=== PATIENT | male | born 1965 | race Caucasian/White ===

== ENCOUNTER 2021-05-28 15:03 | Inpatient (IN) | payer MEDICARE, SELFPAY ==
[2021-05-28] VITALS (16 sets, daily range): BP systolic 125–135; BP diastolic 76–85; PULSE 88–105; RESP 15–35; TEMP 36.9; O2SAT 97–99
--- NOTE | 2021-05-28 | DI.RAD_ITS ---
Exam(s) XR PORTABLE CHEST AP EXAM: XR PORTABLE CHEST AP CLINICAL HISTORY: DKA, altered mental state, leukocytosis TECHNIQUE: 2D digital imaging was performed of the chest. One image was obtained. An AP view was ob tained. COMPARISON: No exams were available for comparison FINDINGS: MEDIASTINUM: Normal. HEART: Normal. PULMONARY VASCULATURE: Normal. LUNGS: Clear. PLEURAL SPACE: No pleural effusion or pneumothorax. BONE:Within normal limits for the patient's age. OTHER FINDINGS:There is a right IJ catheter in place. The tip is in good position at the junction of the superior vena cava and right atrium. There are surgical clips at the level of the left hemidiap hragm. IMPRESSION: No acute pulmonary findings. DATA REPOSITORY: RADIATION DOSE DELIVERED:
--- NOTE | 2021-05-28 15:00 | RT.EKG_ITS ---
APPROVED REPORT Exam: Resting ECG Reason for Exam: elevated troponin Patient Location: I HR:85 bpm ECG Measurements Heart Rate 85 AXIS NV 119 P 56 QRSd 85 QRS 72 QT 396 T 76 QTc 472 Conclusion Sinus rhythm...normal P axis, V-rate 60- 99 Normal Electrocardiogram
[2021-05-28] MEDS: Normal Saline Flush 10 ML SYR IVP (22:09)
[2021-05-28] MEDS: INSULIN REGULAR IN 0.9 % NACL 100 UNIT/100 ML BAG 6.5 UNIT IV (22:10)
[2021-05-28 22:27] LABS: BE (Venous) -12 mmol/L (-2-3); HCO3 (Venous) 14 mmol/L (23-28); O2 Sat (Venous) 85 %; TCO2 (Venous) 13 mmol/L (24-29); pCO2 (Venous) 27 mmHg (41-51); pH (Venous) 7.32 (7.31-7.41); pO2 (Venous) 46 mmHg
[2021-05-28 22:33] LABS: HGB 11.5 g/dL (13.5-17.5); MCH 27.6 pg (27.0-33.0); MCHC 32.9 % (32.0-36.0); MCV 83.9 fL (80-95); MPV 10.7 fL (8.0-11.0); Platelet Count 521 10^3/uL (130-400); RBC 4.17 10^6/uL (4.36-5.78); RDW 14.8 % (11.8-14.1); RDW-SD 45.1 fL; WBC 24.72 10^3/uL (4.4-10.8)
[2021-05-28 22:38] LABS: Source Nasal/Nares
[2021-05-28 22:44] LABS: Hemoglobin A1C 12.2 % (<5.7); INR 1.1 (0.9-1.1); Prothrombin Time 10.6 sec (9.3-11.0)
[2021-05-28 22:56] LABS: Absolute Neutrophil Count 18.54 10^3/uL (1.2-6.7); Bands % 1
[2021-05-28 22:57] LABS: Absolute Lymphocyte Count 2.97 10^3/uL (1.2-3.4); Absolute Monocyte Count 3.21 10^3/uL (0.1-0.8); Acanthocytes 1+; Atypical Lymphocytes % 1; Diff Comment Manual Differential; Howell-Jolly Bodies 1+; Nucleated RBC 1 %
[2021-05-28 22:58] LABS: Burr Cells (echinocyte) 3+
[2021-05-28 23:00] LABS: Procalcitonin 0.2 ng/mL
[2021-05-28 23:01] LABS: ALT 17 U/L (16-63); AST 15 U/L (15-37); Albumin 2.7 g/dL (3.4-5.0); Alkaline Phosphatase 165 U/L (46-116); Anion Gap 13.7 mmol/L (3-11); BUN 10 mg/dL (7-18); Bilirubin, Direct 0.1 mg/dL (0.0-0.2); Bilirubin, Total 0.5 mg/dL (0.2-1.0); C-Reactive Protein 2.43 mg/dL (0.0-0.3); CO2 15.3 mmol/L (21.0-32.0); Calcium 8.5 mg/dL (8.5-10.1); Chloride 107 mmol/L (98-107); Glucose 251 mg/dL (74-106); Magnesium 1.7 mg/dL (1.8-2.4); Potassium 3.4 mmol/L (3.5-5.1); Sodium 136 mmol/L (136-145); TSH (W/Ref FT4) 0.33 uIU/mL (0.36-3.74); Total Protein 6.1 g/dL (6.4-8.2)
[2021-05-28 23:04] LABS: Lipase 22 U/L (73-393); Troponin I 1.03 ng/mL (<0.06)
[2021-05-28 23:24] LABS: FREE T4 1.12 ng/dL (0.76-1.46)
[2021-05-28] MEDS: Lidocaine 2% Jelly 6 ML SYR (23:26)
[2021-05-28] MEDS: Heparin 5,000 UNITS/ML VIAL 5000 UNITS SC (23:32)
[2021-05-28 23:33] LABS: COVID-19 PCR Negative (Negative)
[2021-05-29] VITALS (132 sets, daily range): BP systolic 118–159; BP diastolic 72–121; PULSE 77–137; RESP 10–36; TEMP 36.5–37.8; O2SAT 94–99
[2021-05-29] MEDS: POTASSIUM CHLORIDE/0.9% NACL 1,000 ML 150 MEQ IV (00:13)
--- NOTE | 2021-05-29 01:16 | DI.VRAD_ITS ---
PROCEDURE INFORMATION: Exam: XR Chest Exam date and time: 05/28/2021 11:03 PM Age: 55 years old Clinical indication: Other: Dka, altered mental state, leukocytosis; Prior surgery; Surgery date: 1-6 months; Surgery type: Port TECHNIQUE: Imaging protocol: XR of the chest. Views: 1 view. COMPARISON: No relevant prior studies available. FINDINGS: Right Port a cath at the cavoatrial junction Lungs: Mild chronic interstitial prominence. No consolidation. Pleural spaces: No pleural effusion. No pneumothorax. Heart/Mediastinum: No cardiomegaly. Bones/joints: Unremarkable. Surgical clips in the left upper quadrant IMPRESSION: No acute findings. No radiographic evidence for pneumonia Dictated and Authenticated by: Radhames Saldivar MD. Ordering:CARIE Crump MD
[2021-05-29] MEDS: POTASSIUM CHLORIDE/D5-0.9%NACL 1,000 ML 150 MEQ IV ×5 (01:35→23:31)
[2021-05-29 02:19] LABS: Anion Gap 13.6 mmol/L (3-11); BUN 8 mg/dL (7-18); CO2 16.4 mmol/L (21.0-32.0); CREATININE 0.9 mg/dL (0.70-1.30); Calcium 8.7 mg/dL (8.5-10.1); Chloride 109 mmol/L (98-107); Sodium 139 mmol/L (136-145)
[2021-05-29 02:21] LABS: Ammonia 42 umol/L (11-32); Glucose 87 mg/dL (74-106)
[2021-05-29] MEDS: PIPERACILLIN/TAZO 3.375 GM in Normal Saline 50 ML IVPB (02:23)
[2021-05-29] MEDS: ACETAMINOPHEN 1,000 MG/100 ML BTL 400 MG IVPB ×2 (02:23→11:50)
[2021-05-29] MEDS: POTASSIUM CHLORIDE 20 MEQ/100 ML BAG 50 MEQ IVPB ×5 (03:11→16:03)
[2021-05-29] MEDS: INSULIN REGULAR IN 0.9 % NACL 100 UNIT/100 ML BAG 7 UNIT IV (03:22)
[2021-05-29 03:28] LABS: Total Protein (CSF) 34 mg/dL (15-45)
[2021-05-29 03:41] LABS: Tube # 4
[2021-05-29 03:42] LABS: Clarity Clear; RBC 1 /mm3 (0-5); WBC 11 /uL (0-5); Xanthochromia Absent
[2021-05-29 03:49] LABS: Glucose (CSF) 190 mg/dL (40-70)
[2021-05-29 04:55] LABS: Differential CSF: Performed
[2021-05-29] MEDS: Dextrose 50%-Water 25 GM/50 ML SYR (05:18)
--- NOTE | 2021-05-29 07:01 | W.PM.HP.N ---
Date of service: 05/28/21 Time of Service: 22:02 Assessment and Plan Assessment and plan (1) Lethargy: Status: Acute Assessment and plan: Etiology of lethargy is not quite clear at this time. If lethargy remains after blood sugar improves may need to consider further studies such as LP. CT scan of the head was negative. Ammonia level is ordered. (2) DKA (diabetic ketoacidosis): Status: Acute Assessment and plan: He is currently on intravenous insulin and normal saline. His hemodynamics are stable. His acidosis seems to be improving with the intravenous insulin and fluids compared to the labs from the previous hospital. (3) Abdominal pain: Status: Acute Assessment and plan: This is a chronic problem. CT scan from previous hospital showed inflammation of his transverse colon. He has been treated with piperacillin/tazobactam from present time they will be continued. He has a persistent leukocytosis that may be related to this colon inflammation. I do not see a urinalysis report at this time. (4) Acidosis due to secondary diabetes: Status: Acute (5) Elevated troponin: Status: Acute Assessment and plan: His troponin is elevated a bit more than it was at the prior hospital. I do not see any acute electrocardiographic abnormalities. This will be followed. I do not think she is suffering from a myocardial infarction at this time and suspect that the troponin leak is probably due to his other medical conditions. (6) Sepsis: Status: Acute Assessment and plan: He has been hemodynamically stable. His procalcitonin level is improved. Blood cultures have been repeated and I suspect that they were drawn at [facility]. He is being monitored in the intensive care unit. History of Present Illness History of Present Illness Chief Complaint: altered mental status, acidosis, hyperglycemia Narrative: This 55 year old male was transferred here from [facility] in [facility] because of altered mental status, hypoglycemia, diabetic ketoacidosis and leukocytosis. He went to the emergency department there on May 27 because of abdominal pain. He frequently goes to their infusion room at that hospital for intravenous fluids, antiemetics and pain medicine. He seemed to be a bit worse on that day because he showed up to the infusion room on twice. He was seen in emergency department had numerous lab studies and radiologic studies done. He was started on piperacillin/tazobactam for an elevated white blood cell count and thickening of his transverse colon on CT scan. He got worse while there is developed diabetic ketoacidosis. The emergency department there did not think he was a candidate to be admitted there they tried intermittent approximately 20 hospitals before the calling here and Dr. Martin accepted him for transfer. There was a delay moving him here because apparently there was no ambulance service available immediately. He showed up here approximately 10 PM on May 28. Prior to transfer he was started on insulin infusion and intravenous fluids. He was noted to have had a metabolic acidosis with pH of 7.1. He was febrile for the hospital intermittently. He was also tachycardic. He has persistent leukocytosis. He was stable during transport. On presentation here he was opening his eyes to commands but was minimally responsive. He cannot give me any history. I did review the records that were sent from [facility] although were not many details of his current illness. 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 Previous surgeries include heart catheterization, central venous catheter placement, multiple EGDs, incisional hernia repair, knee surgery, pancreatectomy and partial gastrectomy, islet cell transplantation history of cholecystectomy and past history of spinal cord stimulator. He is on disability because of chronic pancreatitis pain anxiety and rheumatoid arthritis. He lives with his . Allergies: Methotrexate clonidine cyclobenzaprine, ibuprofen, ondansetron, pregabalin, tizanidine, vancomycin, lorazepam and NSAIDs. Current medicines includes. Nitroglycerin, acetaminophen, albuterol inhaler, vitamin C, flunisolide nasal spray, stig, sennosides, vitamin D, pancreatic enzymes, lispro insulin, magnesium as needed, cefpoxidime, methocarbamol, omeprazole, citalopram, clonazepam, hydromorphone and metoclopramide. Review of Systems Unobtainable due to mental condition [facility] Medical History (Updated 05/29/21 @ 07:49 by Theron Ontiveros MD) Anxiety Asthma Depression DVT (deep venous thrombosis) GI bleed Pancreatitis Port-A-Cath in place Surgical History (Updated 05/29/21 @ 04:43 by Mavis Rosenthal) H/O splenectomy History of cardiac catheterization History of cholecystectomy History of esophagogastroduodenoscopy (EGD) History of hernia repair Social History Smoking/Tobacco Use Status: Former Tobacco Use Quit Date: 08/24/09 Smoking risk assessment performed?: Yes Details: PT CAN NOT ANSWER QUESTIONS AT THIS TIME Meds Allergies and Home Medications Allergies Allergy/AdvReac Type Severity Reaction Status Date / Time cyclobenzaprine AdvReac Mild EPIGASTRIC Unverified 05/29/21 05:02 PAIN clonidine AdvReac MUSCLE Unverified 05/29/21 05:02 CRAMPS ibuprofen AdvReac SEVERE Unverified 05/29/21 05:02 STOMACH PAIN lorazepam AdvReac NAUSEA AND Unverified 05/29/21 05:02 VOMITING methotrexate AdvReac CAUSED Unverified 05/29/21 05:02 PANCREATITIS NSAIDS (Non-Steroidal AdvReac UNKNOWN Unverified 05/29/21 05:02 Anti-Inflamma ondansetron [From Zofran] AdvReac EPIGASTRIC Unverified 05/29/21 05:02 PAIN pregabalin AdvReac DIZZINESS Unverified 05/29/21 05:02 DRY MOUTH BLURRY VISION tizanidine AdvReac EPIGASTRIC Unverified 05/29/21 05:02 PAIN CONSTIPATION AND DIZZINESS vancomycin AdvReac RED MAN Unverified 05/29/21 05:02 SYNDROME Exam Const General: ill appearing and lethargic Orientation: not oriented x3 HENMT Head: normal to inspection and normocephalic Eyes Sclera: sclerae normal Cornea: corneas normal Pupils: PERRL Neck Neck: normal visual inspection, no lymphadenopathy and no meningeal signs Resp Effort & Inspection: normal respiratory effort and no respiratory distress Auscultation: no rales, no rhonchi and no wheezes Cardio Jugular venous pressure: no JVD Rate: regular rate Rhythm: regular rhythm Heart Sounds: S1 normal, S2 normal, no gallops, no murmurs and no rubs GI Inspection: normal to inspection Palpation: soft, no hepatosplenomegaly and nontender Skin General skin exam: no rashes or lesions noted Neuro Comatose Patient: no decerebrate rigidity and no decorticate rigidity Other: he opens eyes on command but has no verbal response. He is not combative. He withdraws to pain. He pulled the condom catheter off after it was applied. He had some discomfort when they tried to place a Anne catheter and expand the balloon. Extrem General: normal to inspection and no edema Results Labs Result diagrams: 05/28/21 22:18 05/29/21 02:05 Labs: Laboratory Results - last 24 hr 05/28/21 05/28/21 05/28/21 15:01 22:18 22:18 WBC RBC Hgb Hct MCV MCH MCHC RDW Plt Count MPV Immature Gran % Neutrophils % Band Neutrophils % Lymphocytes % Atypical Lymphs % Monocytes % Eosinophils % Basophils % Nucleated RBC % Absolute Neutrophils Absolute Lymphocytes Absolute Monocytes Absolute Eosinophils Absolute Basophils RBC Morphology Xanthochromia [place] Bodies [place] Cells/Echinocytes Acanthocytes (Spur) PT INR VBG pH VBG pCO2 VBG pO2 VBG HCO3 VBG Total CO2 VBG O2 Saturation VBG Base Excess VBG Lactate Sodium Cancelled 136 Potassium Cancelled 3.4 L Chloride Cancelled 107 Carbon Dioxide Cancelled 15.3 L Anion Gap Cancelled 13.7 H BUN Cancelled 10 Creatinine Cancelled 1.0 Estimated GFR/1.73 m2 Cancelled >= 60.00 Glucose Cancelled 251 H Hemoglobin A1c 12.2 H Calcium Cancelled 8.5 Magnesium 1.7 L Total Bilirubin 0.5 Conjugated Bilirubin 0.1 AST 15 ALT 17 Alkaline Phosphatase 165 H Ammonia Troponin I 1.03 H* C-Reactive Protein 2.43 H Total Protein 6.1 L Albumin 2.7 L Lipase Procalcitonin TSH 0.33 L Free T4 1.12 Fluid Source Fluid Color Fluid Clarity Fluid WBC Fld Polynuclear WBCs % Fluid Mononuclear Cell Fluid Other Cells CSF Tube Number CSF Color CSF Clarity CSF WBC CSF RBC CSF Diff Comment CSF Glucose CSF Total Protein COVID-19 Source SARS-CoV-2 (PCR) Path Cons Comment 05/28/21 05/28/21 05/28/21 22:18 22:18 22:18 WBC 24.72 H RBC 4.17 L Hgb 11.5 L Hct 35.0 L MCV 83.9 MCH 27.6 MCHC 32.9 RDW 14.8 H Plt Count 521 H MPV 10.7 Immature Gran % See Differential Neutrophils % 74.0 Band Neutrophils % 1 Lymphocytes % 11.0 Atypical Lymphs % 1 Monocytes % 13.0 Eosinophils % 0.0 Basophils % 0.0 Nucleated RBC % 1 Absolute Neutrophils 18.54 H Absolute Lymphocytes 2.97 Absolute Monocytes 3.21 H Absolute Eosinophils 0.00 Absolute Basophils 0.00 RBC Morphology See Below Xanthochromia [place] Bodies 1+ [place] Cells/Echinocytes 3+ Acanthocytes (Spur) 1+ PT 10.6 INR 1.1 VBG pH VBG pCO2 VBG pO2 VBG HCO3 VBG Total CO2 VBG O2 Saturation VBG Base Excess VBG Lactate 1.0 Sodium Potassium Chloride Carbon Dioxide Anion Gap BUN Creatinine Estimated GFR/1.73 m2 Glucose Hemoglobin A1c Calcium Magnesium Total Bilirubin Conjugated Bilirubin AST ALT Alkaline Phosphatase Ammonia Troponin I C-Reactive Protein Total Protein Albumin Lipase Procalcitonin 0.2 TSH Free T4 Fluid Source Fluid Color Fluid Clarity Fluid WBC Fld Polynuclear WBCs % Fluid Mononuclear Cell Fluid Other Cells CSF Tube Number CSF Color CSF Clarity CSF WBC CSF RBC CSF Diff Comment CSF Glucose CSF Total Protein COVID-19 Source SARS-CoV-2 (PCR) Path Cons Comment 05/28/21 05/28/21 05/28/21 22:18 22:18 22:18 WBC RBC Hgb Hct MCV MCH MCHC RDW Plt Count MPV Immature Gran % Neutrophils % Band Neutrophils % Lymphocytes % Atypical Lymphs % Monocytes % Eosinophils % Basophils % Nucleated RBC % Absolute Neutrophils Absolute Lymphocytes Absolute Monocytes Absolute Eosinophils Absolute Basophils RBC Morphology Xanthochromia [place] Bodies [place] Cells/Echinocytes Acanthocytes ([place]) PT INR VBG pH 7.32 VBG pCO2 27 L VBG pO2 46 VBG HCO3 14 L VBG Total CO2 13 L VBG O2 Saturation 85 VBG Base Excess -12 L VBG Lactate Sodium Potassium Chloride Carbon Dioxide Anion Gap BUN Creatinine Estimated GFR/1.73 m2 Glucose Hemoglobin A1c Calcium Magnesium Total Bilirubin Conjugated Bilirubin AST ALT Alkaline Phosphatase Ammonia Troponin I C-Reactive Protein Total Protein Albumin Lipase 22 Procalcitonin TSH Free T4 Fluid Source Fluid Color Fluid Clarity Fluid WBC Fld Polynuclear WBCs % Fluid Mononuclear Cell Fluid Other Cells CSF Tube Number CSF Color CSF Clarity CSF WBC CSF RBC CSF Diff Comment CSF Glucose CSF Total Protein COVID-19 Source Nasal/Nares SARS-CoV-2 (PCR) Negative Path Cons Comment 05/29/21 05/29/21 05/29/21 02:05 02:05 02:45 WBC RBC Hgb Hct MCV MCH MCHC RDW Plt Count MPV Immature Gran % Neutrophils % Band Neutrophils % Lymphocytes % Atypical Lymphs % Monocytes % Eosinophils % Basophils % Nucleated RBC % Absolute Neutrophils Absolute Lymphocytes Absolute Monocytes Absolute Eosinophils Absolute Basophils RBC Morphology Xanthochromia [place] Bodies [place] Cells/Echinocytes Acanthocytes ([place]) PT INR VBG pH VBG pCO2 VBG pO2 VBG HCO3 VBG Total CO2 VBG O2 Saturation VBG Base Excess VBG Lactate Sodium 139 Potassium 3.0 L Chloride 109 H Carbon Dioxide 16.4 L Anion Gap 13.6 H BUN 8 Creatinine 0.9 Estimated GFR/1.73 m2 >= 60.00 Glucose 87 D Hemoglobin A1c Calcium 8.7 Magnesium Total Bilirubin Conjugated Bilirubin AST ALT Alkaline Phosphatase Ammonia 42 H Troponin I C-Reactive Protein Total Protein Albumin Lipase Procalcitonin TSH Free T4 Fluid Source Fluid Color Fluid Clarity Fluid WBC Fld Polynuclear WBCs % Fluid Mononuclear Cell Fluid Other Cells CSF Tube Number CSF Color CSF Clarity CSF WBC CSF RBC CSF Diff Comment CSF Glucose 190 H CSF Total Protein COVID-19 Source SARS-CoV-2 (PCR) Path Cons Comment 05/29/21 05/29/21 02:45 02:45 WBC RBC Hgb Hct MCV MCH MCHC RDW Plt Count MPV Immature Gran % Neutrophils % Band Neutrophils % Lymphocytes % Atypical Lymphs % Monocytes % Eosinophils % Basophils % Nucleated RBC % Absolute Neutrophils Absolute Lymphocytes Absolute Monocytes Absolute Eosinophils Absolute Basophils RBC Morphology Xanthochromia Absent [place] Bodies [place] Cells/Echinocytes Acanthocytes ([place]) PT INR VBG pH VBG pCO2 VBG pO2 VBG HCO3 VBG Total CO2 VBG O2 Saturation VBG Base Excess VBG Lactate Sodium Potassium Chloride Carbon Dioxide Anion Gap BUN Creatinine Estimated GFR/1.73 m2 Glucose Hemoglobin A1c Calcium Magnesium Total Bilirubin Conjugated Bilirubin AST ALT Alkaline Phosphatase Ammonia Troponin I C-Reactive Protein Total Protein Albumin Lipase Procalcitonin TSH Free T4 Fluid Source Cancelled Fluid Color Cancelled Fluid Clarity Cancelled Fluid WBC Cancelled Fld Polynuclear WBCs % Cancelled Fluid Mononuclear Cell Cancelled Fluid Other Cells Cancelled CSF Tube Number 4 CSF Color Colorless CSF Clarity Clear CSF WBC 11 H CSF RBC 1 CSF Diff Comment Performed CSF Glucose CSF Total Protein 34 COVID-19 Source SARS-CoV-2 (PCR) Path Cons Comment Cancelled Last Vital Signs Temp 37.8 C H 05/29/21 02:23 Pulse 87 05/29/21 04:00 Resp 25 H 05/29/21 04:01 BP 140/86 05/29/21 04:00 Pulse Ox 96 05/29/21 04:01
[2021-05-29] MEDS: Normal Saline 50 ML 200 ML (07:34)
[2021-05-29 07:40] LABS: BE (Venous) -6 mmol/L (-2-3); HCO3 (Venous) 19 mmol/L (23-28); O2 Sat (Venous) 82 %; TCO2 (Venous) 17 mmol/L (24-29); pCO2 (Venous) 30 mmHg (41-51); pH (Venous) 7.41 (7.31-7.41); pO2 (Venous) 39 mmHg
--- NOTE | 2021-05-29 07:45 | RT.EKG_ITS ---
APPROVED REPORT Exam: Resting ECG Reason for Exam: NSTEMI Patient Location: I HR:81 bpm ECG Measurements Heart Rate 81 AXIS TX 121 P 82 QRSd 83 QRS 64 QT 388 T 71 QTc 451 Conclusion Sinus rhythm...normal P axis, V-rate 60- 99 Normal Electrocardiogram
[2021-05-29 07:53] LABS: Abs Immature Grans 0.22 10^3/uL (0.0-0.06); Absolute Basophil Count 0.03 10^3/uL (0.0-0.2); Absolute Lymphocyte Count 1.85 10^3/uL (1.2-3.4); Absolute Monocyte Count 1.85 10^3/uL (0.1-0.8); Basophils % 0.1; HCT 34.4 % (40.0-50.0); HGB 11.6 g/dL (13.5-17.5); Immature Grans % 0.9; Lymphocytes % 7.3; MCH 27.3 pg (27.0-33.0); MCHC 33.7 % (32.0-36.0); MCV 80.9 fL (80-95); MPV 10.7 fL (8.0-11.0); Monocytes % 7.3; Neutrophils % 84.4; Nucleated RBC 0 %; Platelet Count 521 10^3/uL (130-400); RBC 4.25 10^6/uL (4.36-5.78); RDW 14.7 % (11.8-14.1); RDW-SD 43.2 fL
--- NOTE | 2021-05-29 07:54 | PGE_ITS ---
Date of Service Date of service: 05/29/21 Time of Service: 01:54 Subjective Subjective Interval history since last seen: He has had persistent lethargy since admission. His blood sugars have improved and he has a leukocytosis of uncert ain definite etiology. I discussed situation with his and supposedly do a lumbar puncture to evaluate him for a HADOOP DEVELOPER infection. She agrees and is verbal permission to proceed with lumbar puncture. She gave her permission also to the nurse in attendance. I reviewed the CT report of his head prior to doing the lumbar puncture to make sure there is no hydrocephalus. He was positioned in the right lateral knee-chest position with nursing assistance. The landmarks of his iliac crest and spinous processes were palpated and marked with a pen. Prep was done with chlorhexidine and using ster ile procedure the interspace at the level of the iliac crest was anesthetized with lidocaine 1%. After 1 attempt at that level and 09/02 1 interspace higher I went back to the first lumbar interspace with a 22-gauge spinal needle and was able to get spinal fluid. First pass of the fluid was a bit bloody but then cleared. Four test tubes of spinal fluid were sent to the lab for analysis. Patient tolerated procedure well. The spinal needle was removed after replacing the stylette to help reduce the chance of post LP fluid leak. A bandage was applied. Objective Last Vital Signs Temp 37.8 C H 05/29/21 02:23 Pulse 78 05/29/21 07:00 Resp 18 05/29/21 07:20 BP 122/76 05/29/21 07:00 Pulse Ox 99 05/29/21 07:31 Laboratory Results - last 24 hr 05/28/21 05/28/21 05/28/21 15:01 22:18 22:18 WBC RBC Hgb Hct MCV MCH MCHC RDW Plt Count MPV Immature Gran % Neutrophils % Band Neutrophils % Lymphocytes % Atypical Lymphs % Monocytes % Eosinophils % Basophils % Nucleated RBC % Absolute Neutrophils Absolute Lymphocytes Absolute Monocytes Absolute Eosinophils Absolute Basophils RBC Morphology Xanthochromia [place] Bodies [place] Cells/Echinocytes Acanthocytes ([place]) PT INR VBG pH VBG pCO2 VBG pO2 VBG HCO3 VBG Total CO2 VBG O2 Saturation VBG Base Excess VBG Lactate Sodium Cancelled 136 Potassium Cancelled 3.4 L Chloride Cancelled 107 Carbon Dioxide Cancelled 15.3 L Anion Gap Cancelled 13.7 H BUN Cancelled 10 Creatinine Cancelled 1.0 Estimated GFR/1.73 m2 Cancelled >= 60.00 Glucose Cancelled 251 H Hemoglobin A1c 12.2 H Calcium Cancelled 8.5 Magnesium 1.7 L Total Bilirubin 0.5 Conjugated Bilirubin 0.1 AST 15 ALT 17 Alkaline Phosphatase 165 H Ammonia Troponin I 1.03 H* C-Reactive Protein 2.43 H Total Protein 6.1 L Albumin 2.7 L Lipase Procalcitonin TSH 0.33 L Free T4 1.12 Fluid Source Fluid Color Fluid Clarity Fluid WBC Fld Polynuclear WBCs % Fluid Mononuclear Cell Fluid Other Cells CSF Tube Number CSF Color CSF Clarity CSF WBC CSF RBC CSF Diff Comment CSF Glucose CSF Total Protein COVID-19 Source SARS-CoV-2 (PCR) Path Cons Comment 05/28/21 05/28/21 05/28/21 22:18 22:18 22:18 WBC 24.72 H RBC 4.17 L Hgb 11.5 L Hct 35.0 L MCV 83.9 MCH 27.6 MCHC 32.9 RDW 14.8 H Plt Count 521 H MPV 10.7 Immature Gran % See Differential Neutrophils % 74.0 Band Neutrophils % 1 Lymphocytes % 11.0 Atypical Lymphs % 1 Monocytes % 13.0 Eosinophils % 0.0 Basophils % 0.0 Nucleated RBC % 1 Absolute Neutrophils 18.54 H Absolute Lymphocytes 2.97 Absolute Monocytes 3.21 H Absolute Eosinophils 0.00 Absolute Basophils 0.00 RBC Morphology See Below Xanthochromia [place] Bodies 1+ [place] Cells/Echinocytes 3+ Acanthocytes (Spur) 1+ PT 10.6 INR 1.1 VBG pH VBG pCO2 VBG pO2 VBG HCO3 VBG Total CO2 VBG O2 Saturation VBG Base Excess VBG Lactate 1.0 Sodium Potassium Chloride Carbon Dioxide Anion Gap BUN Creatinine Estimated GFR/1.73 m2 Glucose Hemoglobin A1c Calcium Magnesium Total Bilirubin Conjugated Bilirubin AST ALT Alkaline Phosphatase Ammonia Troponin I C-Reactive Protein Total Protein Albumin Lipase Procalcitonin 0.2 TSH Free T4 Fluid Source Fluid Color Fluid Clarity Fluid WBC Fld Polynuclear WBCs % Fluid Mononuclear Cell Fluid Other Cells CSF Tube Number CSF Color CSF Clarity CSF WBC CSF RBC CSF Diff Comment CSF Glucose CSF Total Protein COVID-19 Source SARS-CoV-2 (PCR) Path Cons Comment 05/28/21 05/28/21 05/28/21 22:18 22:18 22:18 WBC RBC Hgb Hct MCV MCH MCHC RDW Plt Count MPV Immature Gran % Neutrophils % Band Neutrophils % Lymphocytes % Atypical Lymphs % Monocytes % Eosinophils % Basophils % Nucleated RBC % Absolute Neutrophils Absolute Lymphocytes Absolute Monocytes Absolute Eosinophils Absolute Basophils RBC Morphology Xanthochromia [place] Bodies [place] Cells/Echinocytes Acanthocytes ([place]) PT INR VBG pH 7.32 VBG pCO2 27 L VBG pO2 46 VBG HCO3 14 L VBG Total CO2 13 L VBG O2 Saturation 85 VBG Base Excess -12 L VBG Lactate Sodium Potassium Chloride Carbon Dioxide Anion Gap BUN Creatinine Estimated GFR/1.73 m2 Glucose Hemoglobin A1c Calcium Magnesium Total Bilirubin Conjugated Bilirubin AST ALT Alkaline Phosphatase Ammonia Troponin I C-Reactive Protein Total Protein Albumin Lipase 22 Procalcitonin TSH Free T4 Fluid Source Fluid Color Fluid Clarity Fluid WBC Fld Polynuclear WBCs % Fluid Mononuclear Cell Fluid Other Cells CSF Tube Number CSF Color CSF Clarity CSF WBC CSF RBC CSF Diff Comment CSF Glucose CSF Total Protein COVID-19 Source Nasal/Nares SARS-CoV-2 (PCR) Negative Path Cons Comment 05/29/21 05/29/21 05/29/21 02:05 02:05 02:45 WBC RBC Hgb Hct MCV MCH MCHC RDW Plt Count MPV Immature Gran % Neutrophils % Band Neutrophils % Lymphocytes % Atypical Lymphs % Monocytes % Eosinophils % Basophils % Nucleated RBC % Absolute Neutrophils Absolute Lymphocytes Absolute Monocytes Absolute Eosinophils Absolute Basophils RBC Morphology Xanthochromia [place] Bodies [place] Cells/Echinocytes Acanthocytes ([place]) PT INR VBG pH VBG pCO2 VBG pO2 VBG HCO3 VBG Total CO2 VBG O2 Saturation VBG Base Excess VBG Lactate Sodium 139 Potassium 3.0 L Chloride 109 H Carbon Dioxide 16.4 L Anion Gap 13.6 H BUN 8 Creatinine 0.9 Estimated GFR/1.73 m2 >= 60.00 Glucose 87 D Hemoglobin A1c Calcium 8.7 Magnesium Total Bilirubin Conjugated Bilirubin AST ALT Alkaline Phosphatase Ammonia 42 H Troponin I C-Reactive Protein Total Protein Albumin Lipase Procalcitonin TSH Free T4 Fluid Source Fluid Color Fluid Clarity Fluid WBC Fld Polynuclear WBCs % Fluid Mononuclear Cell Fluid Other Cells CSF Tube Number CSF Color CSF Clarity CSF WBC CSF RBC CSF Diff Comment CSF Glucose 190 H CSF Total Protein COVID-19 Source SARS-CoV-2 (PCR) Path Cons Comment 05/29/21 05/29/21 05/29/21 02:45 02:45 07:28 WBC RBC Hgb Hct MCV MCH MCHC RDW Plt Count MPV Immature Gran % Neutrophils % Band Neutrophils % Lymphocytes % Atypical Lymphs % Monocytes % Eosinophils % Basophils % Nucleated RBC % Absolute Neutrophils Absolute Lymphocytes Absolute Monocytes Absolute Eosinophils Absolute Basophils RBC Morphology Xanthochromia Absent [place] Bodies [place] Cells/Echinocytes Acanthocytes ([place]) PT INR VBG pH 7.41 VBG pCO2 30 L VBG pO2 39 VBG HCO3 19 L VBG Total CO2 17 L VBG O2 Saturation 82 VBG Base Excess -6 L VBG Lactate Sodium Potassium Chloride Carbon Dioxide Anion Gap BUN Creatinine Estimated GFR/1.73 m2 Glucose Hemoglobin A1c Calcium Magnesium Total Bilirubin Conjugated Bilirubin AST ALT Alkaline Phosphatase Ammonia Troponin I C-Reactive Protein Total Protein Albumin Lipase Procalcitonin TSH Free T4 Fluid Source Cancelled Fluid Color Cancelled Fluid Clarity Cancelled Fluid WBC Cancelled Fld Polynuclear WBCs % Cancelled Fluid Mononuclear Cell Cancelled Fluid Other Cells Cancelled CSF Tube Number 4 CSF Color Colorless CSF Clarity Clear CSF WBC 11 H CSF RBC 1 CSF Diff Comment Performed CSF Glucose CSF Total Protein 34 COVID-19 Source SARS-CoV-2 (PCR) Path Cons Comment Cancelled Procedures Lumbar Puncture Time out performed: Yes Patient position: right lateral decubitus Local anesthetic used: Lidocaine 1% Spinal needle gauge: 22G Interspace used: L4-L5 Fluid initially obtained: bloody Complications: none
[2021-05-29 07:55] LABS: Lipase 20 U/L (73-393)
[2021-05-29 07:56] LABS: Absolute Neutrophil Count 21.44 10^3/uL (1.2-6.7)
--- NOTE | 2021-05-29 07:57 | NUR.NOTE ---
Spoke with Dr. Ontiveros around 0515. Advised that following the [place] scale will likely not work for this pt. He has an A1C of 12 and gets sick when his BGL drops out of the 100s. He begins vomiting and visibly looks more distressed. Weston agrees that a trial titration might work best for patient to find the best spot of units of insulin. As noted in his MAR a monitor titration was done and patient seemed to respond better then following the protocol. Will pass this on for day shift to decide what works best for patient.
[2021-05-29 08:06] LABS: Total Protein 6.1 g/dL (6.4-8.2)
[2021-05-29 08:10] LABS: Anion Gap 9.4 mmol/L (3-11); BUN 6 mg/dL (7-18); CO2 21.6 mmol/L (21.0-32.0); CREATININE 0.9 mg/dL (0.70-1.30); Calcium 8.4 mg/dL (8.5-10.1); Chloride 108 mmol/L (98-107); Glucose 159 mg/dL (74-106); Magnesium 1.7 mg/dL (1.8-2.4); Sodium 139 mmol/L (136-145)
--- NOTE | 2021-05-29 08:10 | W.PM.PROGNOT ---
Date of Service Date of service: 05/29/21 Time of Service: 13:07 Assessment and Plan Assessment and plan (1) Gram negative sepsis: Status: Acute Assessment and plan: Per records from [facility], the patient has colitis and had been initiated on zosyn. C.Diff negaitve. Continue zosyn. Repeat blood cultures tomorrow am. Port has been cultured. Continue IVF. Expect that the source is intraabdominal. Consider extraction of the port. (2) DKA (diabetic ketoacidosis): Status: Resolved Assessment and plan: Resolved. Continue insulin gtt as still not eating. Did receive his home dose of lantus today. Qualifiers: Diabetes mellitus type: due to underlying condition Diabetes mellitus complication detail: without coma Qualified Code(s): E08.10 - Diabetes mellitus due to underlying condition with ketoacidosis without coma (3) Elevated troponin: Status: Acute Assessment and plan: Suspect type 2 NSTEMI. Would benefit from cardiology consult tomorrow. I am not sure what ischemic workup he has already had - will investigate. Asa rectal. Obtain echo. (4) Toxic metabolic encephalopathy: Status: Acute Assessment and plan: Suspect that this is due to GNR sepsis +/- DKA. Does also have elevated ammonia. Consider lactulose vs rifaxamine when taking PO. Monitor mental status (5) Hyperammonemia: Status: Acute Assessment and plan: As above (6) Hypomagnesemia: Status: Acute Assessment and plan: Replete and recheck in am (7) Hypophosphatemia: Status: Acute Assessment and plan: Replete and recheck in am (8) History of pancreatic islet cell transplantation: Status: Chronic Assessment and plan: For chronic pancreatitis due to above. With secondary T1DM. He is not on immunosupressants. 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 (10) Hypokalemia: Status: Acute Assessment and plan: Replete, recheck in am (11) Secondary diabetes mellitus: Status: Chronic Assessment and plan: Insulin dependent as s/p pancreatectomy, acts as T1DM. GOt home lantus. Keep on insulin gtt while not eating. Keep in ICU (12) Cystic fibrosis: Status: Chronic Assessment and plan: Referral placed for [facility]. (13) DVT prophylaxis: Status: Acute Assessment and plan: SC heparin (14) Discharge planning issues: Status: Acute Assessment and plan: Full code. Keep in ICU. Total Critical Care Time [address] Alvarez. Subjective Subjective Interval history since last seen: On D5NS with 40 meq KCl. Insulin gtt still on as he still has not eaten, but DKA has resolved. He has been very lethargic, arousable, but not answering all questions. He cannot answer where he is. Denies chest pain, shortness of breath, abdominal pain, but moans/grimaces when I press on the abdomen. Does report nausea. Trop 0.68, K 2.9. Has an infusaport. GNR in anaerobic blood culture bottle. Exam Narrative Exam Narrative: General: Middle-aged Caucasina male who is clearly encephalopathic, A&ox1, lethargic HEENT: EOMI, MMM Heart: RRR, no m/r/g Lungs: CTAB Abdomen: soft, +hypoactive bowel sounds, diffusely tender. Extremities: no edema BLE's. +1 BLE pedal pulses Objective Last Vital Signs Temp 37.5 C 05/29/21 04:30 Pulse 78 05/29/21 07:00 Resp 18 05/29/21 07:20 BP 122/76 05/29/21 07:00 Pulse Ox 99 05/29/21 07:31 Laboratory Results - last 24 hr 05/28/21 05/28/21 05/28/21 15:01 22:18 22:18 WBC RBC Hgb Hct MCV MCH MCHC RDW Plt Count MPV Immature Gran % Neutrophils % Band Neutrophils % Lymphocytes % Atypical Lymphs % Monocytes % Eosinophils % Basophils % Nucleated RBC % Absolute Neutrophils Absolute Lymphocytes Absolute Monocytes Absolute Eosinophils Absolute Basophils RBC Morphology Xanthochromia [place] B[place] Cells/Echinocytes Acanthocytes (Spur) PT INR VBG pH VBG pCO2 VBG pO2 VBG HCO3 VBG Total CO2 VBG O2 Saturation VBG Base Excess VBG Lactate Sodium Cancelled 136 Potassium Cancelled 3.4 L Chloride Cancelled 107 Carbon Dioxide Cancelled 15.3 L Anion Gap Cancelled 13.7 H BUN Cancelled 10 Creatinine Cancelled 1.0 Estimated GFR/1.73 m2 Cancelled >= 60.00 Glucose Cancelled 251 H Hemoglobin A1c 12.2 H Calcium Cancelled 8.5 Magnesium 1.7 L Total Bilirubin 0.5 Conjugated Bilirubin 0.1 AST 15 ALT 17 Alkaline Phosphatase 165 H Ammonia Troponin I 1.03 H* C-Reactive Protein 2.43 H Total Protein 6.1 L Albumin 2.7 L Lipase Procalcitonin TSH 0.33 L Free T4 1.12 Fluid Source Fluid Color Fluid Clarity Fluid WBC Fld Polynuclear WBCs % Fluid Mononuclear Cell Fluid Other Cells CSF Tube Number CSF Color CSF Clarity CSF WBC CSF RBC CSF Diff Comment CSF Glucose CSF Total Protein COVID-19 Source SARS-CoV-2 (PCR) Path Cons Comment 05/28/21 05/28/21 05/28/21 22:18 22:18 22:18 WBC 24.72 H RBC 4.17 L Hgb 11.5 L Hct 35.0 L MCV 83.9 MCH 27.6 MCHC 32.9 RDW 14.8 H Plt Count 521 H MPV 10.7 Immature Gran % See Differential Neutrophils % 74.0 Band Neutrophils % 1 Lymphocytes % 11.0 Atypical Lymphs % 1 Monocytes % 13.0 Eosinophils % 0.0 Basophils % 0.0 Nucleated RBC % 1 Absolute Neutrophils 18.54 H Absolute Lymphocytes 2.97 Absolute Monocytes 3.21 H Absolute Eosinophils 0.00 Absolute Basophils 0.00 RBC Morphology See Below Xanthochromia [place] Bodies 1+ [place] Cells/Echinocytes 3+ Acanthocytes (Spur) 1+ PT 10.6 INR 1.1 VBG pH VBG pCO2 VBG pO2 VBG HCO3 VBG Total CO2 VBG O2 Saturation VBG Base Excess VBG Lactate 1.0 Sodium Potassium Chloride Carbon Dioxide Anion Gap BUN Creatinine Estimated GFR/1.73 m2 Glucose Hemoglobin A1c Calcium Magnesium Total Bilirubin Conjugated Bilirubin AST ALT Alkaline Phosphatase Ammonia Troponin I C-Reactive Protein Total Protein Albumin Lipase Procalcitonin 0.2 TSH Free T4 Fluid Source Fluid Color Fluid Clarity Fluid WBC Fld Polynuclear WBCs % Fluid Mononuclear Cell Fluid Other Cells CSF Tube Number CSF Color CSF Clarity CSF WBC CSF RBC CSF Diff Comment CSF Glucose CSF Total Protein COVID-19 Source SARS-CoV-2 (PCR) Path Cons Comment 05/28/21 05/28/21 05/28/21 22:18 22:18 22:18 WBC RBC Hgb Hct MCV MCH MCHC RDW Plt Count MPV Immature Gran % Neutrophils % Band Neutrophils % Lymphocytes % Atypical Lymphs % Monocytes % Eosinophils % Basophils % Nucleated RBC % Absolute Neutrophils Absolute Lymphocytes Absolute Monocytes Absolute Eosinophils Absolute Basophils RBC Morphology Xanthochromia [place] Bodies [place] Cells/Echinocytes Acanthocytes (Spur) PT INR VBG pH 7.32 VBG pCO2 27 L VBG pO2 46 VBG HCO3 14 L VBG Total CO2 13 L VBG O2 Saturation 85 VBG Base Excess -12 L VBG Lactate Sodium Potassium Chloride Carbon Dioxide Anion Gap BUN Creatinine Estimated GFR/1.73 m2 Glucose Hemoglobin A1c Calcium Magnesium Total Bilirubin Conjugated Bilirubin AST ALT Alkaline Phosphatase Ammonia Troponin I C-Reactive Protein Total Protein Albumin Lipase 22 Procalcitonin TSH Free T4 Fluid Source Fluid Color Fluid Clarity Fluid WBC Fld Polynuclear WBCs % Fluid Mononuclear Cell Fluid Other Cells CSF Tube Number CSF Color CSF Clarity CSF WBC CSF RBC CSF Diff Comment CSF Glucose CSF Total Protein COVID-19 Source Nasal/Nares SARS-CoV-2 (PCR) Negative Path Cons Comment 05/29/21 05/29/21 05/29/21 02:05 02:05 02:45 WBC RBC Hgb Hct MCV MCH MCHC RDW Plt Count MPV Immature Gran % Neutrophils % Band Neutrophils % Lymphocytes % Atypical Lymphs % Monocytes % Eosinophils % Basophils % Nucleated RBC % Absolute Neutrophils Absolute Lymphocytes Absolute Monocytes Absolute Eosinophils Absolute Basophils RBC Morphology Xanthochromia [place] Bodies [place] Cells/Echinocytes Acanthocytes (Spur) PT INR VBG pH VBG pCO2 VBG pO2 VBG HCO3 VBG Total CO2 VBG O2 Saturation VBG Base Excess VBG Lactate Sodium 139 Potassium 3.0 L Chloride 109 H Carbon Dioxide 16.4 L Anion Gap 13.6 H BUN 8 Creatinine 0.9 Estimated GFR/1.73 m2 >= 60.00 Glucose 87 D Hemoglobin A1c Calcium 8.7 Magnesium Total Bilirubin Conjugated Bilirubin AST ALT Alkaline Phosphatase Ammonia 42 H Troponin I C-Reactive Protein Total Protein Albumin Lipase Procalcitonin TSH Free T4 Fluid Source Fluid Color Fluid Clarity Fluid WBC Fld Polynuclear WBCs % Fluid Mononuclear Cell Fluid Other Cells CSF Tube Number CSF Color CSF Clarity CSF WBC CSF RBC CSF Diff Comment CSF Glucose 190 H CSF Total Protein COVID-19 Source SARS-CoV-2 (PCR) Path Cons Comment 05/29/21 05/29/21 05/29/21 02:45 02:45 07:28 WBC RBC Hgb Hct MCV MCH MCHC RDW Plt Count MPV Immature Gran % Neutrophils % Band Neutrophils % Lymphocytes % Atypical Lymphs % Monocytes % Eosinophils % Basophils % Nucleated RBC % Absolute Neutrophils Absolute Lymphocytes Absolute Monocytes Absolute Eosinophils Absolute Basophils RBC Morphology Xanthochromia Absent [place] Bodies [place] Cells/Echinocytes Acanthocytes (Spur) PT INR VBG pH 7.41 VBG pCO2 30 L VBG pO2 39 VBG HCO3 19 L VBG Total CO2 17 L VBG O2 Saturation 82 VBG Base Excess -6 L VBG Lactate Sodium Potassium Chloride Carbon Dioxide Anion Gap BUN Creatinine Estimated GFR/1.73 m2 Glucose Hemoglobin A1c Calcium Magnesium Total Bilirubin Conjugated Bilirubin AST ALT Alkaline Phosphatase Ammonia Troponin I C-Reactive Protein Total Protein Albumin Lipase Procalcitonin TSH Free T4 Fluid Source Cancelled Fluid Color Cancelled Fluid Clarity Cancelled Fluid WBC Cancelled Fld Polynuclear WBCs % Cancelled Fluid Mononuclear Cell Cancelled Fluid Other Cells Cancelled CSF Tube Number 4 CSF Color Colorless CSF Clarity Clear CSF WBC 11 H CSF RBC 1 CSF Diff Comment Performed CSF Glucose CSF Total Protein 34 COVID-19 Source SARS-CoV-2 (PCR) Path Cons Comment Cancelled 05/29/21 05/29/21 07:28 07:28 WBC RBC Hgb Hct MCV MCH MCHC RDW Plt Count MPV Immature Gran % Neutrophils % Band Neutrophils % Lymphocytes % Atypical Lymphs % Monocytes % Eosinophils % Basophils % Nucleated RBC % Absolute Neutrophils Absolute Lymphocytes Absolute Monocytes Absolute Eosinophils Absolute Basophils RBC Morphology Xanthochromia [place] Bodies [place] Cells/Echinocytes Acanthocytes (Spur) PT INR VBG pH VBG pCO2 VBG pO2 VBG HCO3 VBG Total CO2 VBG O2 Saturation VBG Base Excess VBG Lactate Sodium Potassium Chloride Carbon Dioxide Anion Gap BUN Creatinine Estimated GFR/1.73 m2 Glucose Hemoglobin A1c Calcium Magnesium Total Bilirubin Conjugated Bilirubin AST ALT Alkaline Phosphatase Ammonia Troponin I C-Reactive Protein Total Protein 6.1 L Albumin Lipase 20 Procalcitonin TSH Free T4 Fluid Source Fluid Color Fluid Clarity Fluid WBC Fld Polynuclear WBCs % Fluid Mononuclear Cell Fluid Other Cells CSF Tube Number CSF Color CSF Clarity CSF WBC CSF RBC CSF Diff Comment CSF Glucose CSF Total Protein COVID-19 Source SARS-CoV-2 (PCR) Path Cons Comment
[2021-05-29 08:12] LABS: Troponin I 0.68 ng/mL (<0.06)
[2021-05-29 08:13] LABS: Potassium 2.9 mmol/L (3.5-5.1)
[2021-05-29 08:15] LABS: Burr Cells (echinocyte) 3+; Diff Comment Agrees w/ Instrument
--- NOTE | 2021-05-29 08:40 | INITIAL_ITS ---
- If Service Date Differs Date of service: 05/29/21 Time of Service: 08:40 Care Management Initial Assess REASON FOR HOSPITALIZATION:: Lethargy, DKA, Abdominal Pain, Acidosis, Elevated Troponin, Sepsis PAST MEDICAL HISTORY/PAST SURGICAL HISTORY:: Medical History (Updated 05/29/21 @ 07:49 by Theron Ontiveros MD). Anxiety. Asthma. Depression. DVT (deep venous thrombosis). GI bleed. Pancreatitis. Port-A-Cath in place. Surgical History (Updated 05/29/21 @ 04:43 by Mavis Rosenthal). H/O splenectomy. History of cardiac catheterization. History of cholecystectomy. History of esophagogastroduodenoscopy (EGD). History of hernia repair PREVIOUS FUNCTIONAL STATUS/SOCIAL/FAMILY SUPPORTS:: Anderson lives in [place] with his . He has 1 adult child that lives at him and 3 others who live in the area. They are all supportive. Anderson is independent at baseline. He is disabled and on SSDI. His provides his transportation, as he does not drive. CURRENT FUNCTIONAL STATUS:: Anderson was lying in bed and his Windy was at his bedside when CM met with him. CM interviewed Windy since Anderson was not answering questions, although he was awake. Windy shared a bit about Anderson's health and his history of chronic pancreatitis and GI surgeries. Traditionally Anderson receives his healthcare at [facility] and has been to [facility] for his chronic conditions and surgery. ADVANCE DIRECTIVES:: Not on file at [facility]. Has patient been provided with info about the portal/API?: Yes Did the patient sign up for the portal?: No CODE STATUS:: Full Code INSURANCE COVERAGE / FINANCIAL ISSUES:: Medicare per . She agrees to bring his card the next time she visits. CURRENT HOME/COMMUNITY SERVICES/EQUIPMENT:: None at this time PRIMARY CARE PHYSICIAN:: Jennie Varela, [facility] in [place] PATIENT/FAMILY EDUCATION NEEDS:: Review discharge instructions and plan to follow up with community providers, ask me three. TRANSPORTATION:: Via private vehicle with . PLAN:: Anticipate Anderson will be discharge home via private vehicle with when medically cleared by MD. Will follow up with community providers and discharge plan of care.
[2021-05-29] MEDS: Insulin Glargine 300 UNITS/3 ML PEN 22 UNITS SC (09:42)
[2021-05-29] MEDS: Heparin 5,000 UNITS/ML VIAL 5000 UNITS SC ×3 (09:42→23:44)
[2021-05-29] MEDS: Pantoprazole 40 MG VIAL IVP (09:42)
[2021-05-29] MEDS: metroNIDAZOLE 500 MG/100 ML BAG 100 MG IVPB (09:42)
[2021-05-29 09:52] LABS: C Diff PCR Negative (Negative)
--- NOTE | 2021-05-29 10:46 | W.PULMCC ---
General Date of Service Date of service: 05/29/21 Time of Service: 07:00 Reason for Admission to ICU: DKA Assessment and Plan Assessment and plan (1) DKA (diabetic ketoacidosis): Status: Acute Qualifiers: Diabetes mellitus complication detail: without coma Diabetes mellitus type: due to underlying condition Qualified Code(s): E08.10 - Diabetes mellitus due to underlying condition with ketoacidosis without coma (2) Chronic inflammation of pancreas: Status: Acute Qualifiers: Pancreatitis type: other Qualified Code(s): K86.1 - Other chronic pancreatitis (3) History of pancreatic islet cell transplantation: Status: Acute (4) Cystic fibrosis: Status: Acute (5) Hypokalemia: Status: Acute (6) Hypomagnesemia: Status: Acute (7) Hypophosphatemia: Status: Acute (8) Elevated troponin: Status: Acute (9) Hyperammonemia: Status: Acute (10) Leukocytosis: Status: Acute Qualifiers: Leukocytosis type: unspecified Qualified Code(s): D72.829 - Elevated white blood cell count, unspecified (11) 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 As of this morning is her control and he has been converted to D5 half-normal and remains on the insulin drip. He is not he nauseated and unwilling to try food at this time. He had not received his Lantus as of yet so this was placed this morning. His CT scan was positive for inflammation surrounding his colon. His procalcitonin is negative but he does have significant leukocytosis and abdominal pain and this morning had a large mucousy bowel movement that will be tested for C. difficile. Surrounding his cystic fibrosis diagnosis there is mention of it in an old gastroenterology note from [facility] however it does not seem as though he has been plugged in to the CF program there or has seen a botany professor before. Based on his CAT scan of his abdomen and pelvis the lower cuts of his lungs did not show any significant bronchiectasis. He chronically appears as though he is malnourished and does take pancreatic enzymes with his food. He tells me he thinks he was taking his Lantus appropriately prior to admission but he is not clear on what day he last took his insulin. Recommendations Pulmonary: Cystic Fibrosis - unclear history on this, no evidence of bronchiectasis in lower lung cuts of A/P CT - recommend referral to [facility] program - albuterol HFA q4hrs prn Cardiac: Elevated troponin - have trended down - likely demand in the setting of DKA Renal: Hypokalemia - replete to 4.0 Hypophosphatemia - replete to 4.0 Hypomagnesemia - replete to 2.0 I&O: Intake & Output 05/26/21 05/27/21 05/28/21 05/29/21 23:59 23:59 23:59 23:59 Intake Total 10.392 / 392 1857.751 / 1857.751 Output Total 1884 / 1884 Balance 10.392 / . -26.249 / -26.249 Weight 69.3 kg 64.4 kg Daily Fluid Goal:: Even to positive GI Nutrition: Pancreatic Insufficiency - likely due to pancreatic insufficiency - continue home pancreatic enzymes - Creon 24,000-76,000-120,000 4 caps tid with food - Creon 12,000- 38,000- 60, 000, 1 tab with non clear liquids - continue vitamin D2 50,000 1 cap q3 days - sucralfate - PPI - anti-emetics Hyperammonemia - would recommend hold lactulose or rifaximin for now in setting of pancreatic insufficiency s/p islet cell transplantation - no acute concerns Date of Last Bowel Movement: 05/29/21 Infectious Disease: Colitis - rule out C. Diff - this could be a chronic finding - continue Zosyn and Flagyl for now Hematologic: Leukocytosis - reactive vs infectious Neurologic: Lethargy - likely a mild metabolic encephalopathy - continue to monitor, may improve with treatment - LP bland, CT head shows nothing acute Endocrine: DKA - continue insulin gtt and D5-1/2NS until he is able to tolerate a PO diet - s/p Lantus - would continue to give q24 hours - once tolerating diet drip can be discontinued and his 5U of prandial insulin can be restarted - recommend an endocrinology referral at [facility] in the setting of his CF Code Status: Resuscitation Status Full Code Subjective Critical and life-threatening events over the past 24 hours: This is a 55 yo male who was transferred from [facility] overnight due to altered mental status and DKA. He initially presented on 05/27/21 for abdominal pain. He states he takes 22U Lantus nightly and 5U prandial. He beleives that he was taking it regularly prior to presenting to the hospital but he is a bit foggy on when the last date he took his Lantus was. He has a history of islet cell transplantation with pancreatectomy and partial gastrectomy in the setting of chronic pancreatitis. He also has a history of rheumatoid arthritis. There is not a home medication list but on his med list from [facility] he is reportedly not on any immunosuppression. Per notes from [facility] he has heterogeneous CFRT mutations discovered in 2003. He has not seen [facility] pulmonary or been plugged into their CF program. It is likely that his pancreatic issues are related to his CF nor can I find evidence of any evaluation for treatment options. In addition to his pancreatic issues he also has a documented history of chronic sinusitis. This morning he is is tired but awakes briefly to voice. He is answering questions appropriately but does need mutliple prompts to answer. His only complaint is of abdominal pain. Exam Const General: no acute distress Nutritional Appearance: well nourished [facility] Head: normocephalic Ears: external ears normal and no periauricular adenopathy General nose exam: nasal mucous membranes and turbinates normal Face and sinus: sinuses nontender Mouth: oropharynx normal and moist mucous membranes Teeth and gingiva: dentition normal Eyes General: appearance normal, both eyes and all related structures Pupils: PERRL Neck Neck: normal visual inspection and no lymphadenopathy Chest Chest: normal inspection of the chest Resp Effort & Inspection: normal respiratory effort Auscultation: clear to auscultation bilaterally, no rales, no rhonchi and no wheezes Cardio Rate: regular rate Rhythm: regular rhythm Heart Sounds: S1 normal, S2 normal and no murmurs Pulses: radial pulses present bilaterally GI Inspection: normal to inspection Palpation: soft Skin General skin exam: no rashes or lesions noted Neuro General: patient alert, patient awake and patient oriented x3 Extrem General: no clubbing, cyanosis or edema Psych Mental Status: mental status grossly normal Affect: normal affect Attitude: cooperative Most Recent VS/Results Last Vital Signs Temp 37.7 C H 05/29/21 08:00 Pulse 89 05/29/21 10:00 Resp 27 H 05/29/21 10:01 BP 145/90 H 05/29/21 10:00 Pulse Ox 97 05/29/21 10:01 Laboratory Results - last 24 hr 05/28/21 05/28/21 05/28/21 15:01 22:18 22:18 WBC RBC Hgb Hct MCV MCH MCHC RDW Plt Count MPV Immature Gran % Neutrophils % Band Neutrophils % Lymphocytes % Atypical Lymphs % Monocytes % Eosinophils % Basophils % Nucleated RBC % Absolute Neutrophils Absolute Lymphocytes Absolute Monocytes Absolute Eosinophils Absolute Basophils RBC Morphology Xanthochromia [place] Bodies [place] Cells/Echinocytes Acanthocytes (Spur) PT INR VBG pH VBG pCO2 VBG pO2 VBG HCO3 VBG Total CO2 VBG O2 Saturation VBG Base Excess VBG Lactate Sodium Cancelled 136 Potassium Cancelled 3.4 L Chloride Cancelled 107 Carbon Dioxide Cancelled 15.3 L Anion Gap Cancelled 13.7 H BUN Cancelled 10 Creatinine Cancelled 1.0 Estimated GFR/1.73 m2 Cancelled >= 60.00 Glucose Cancelled 251 H Hemoglobin A1c 12.2 H Calcium Cancelled 8.5 Magnesium 1.7 L Total Bilirubin 0.5 Conjugated Bilirubin 0.1 AST 15 ALT 17 Alkaline Phosphatase 165 H Ammonia Troponin I 1.03 H* C-Reactive Protein 2.43 H Total Protein 6.1 L Albumin 2.7 L Lipase Procalcitonin TSH 0.33 L Free T4 1.12 Fluid Source Fluid Color Fluid Clarity Fluid WBC Fld Polynuclear WBCs % Fluid Mononuclear Cell Fluid Other Cells CSF Tube Number CSF Color CSF Clarity CSF WBC CSF RBC CSF Neutrophils % CSF Lymphocytes % CSF Monos/Macrophage % CSF Other Cells % CSF Diff Comment CSF Glucose CSF Total Protein Stl C.difficile Tox PCR COVID-19 Source SARS-CoV-2 (PCR) AFB Source AFB Culture Final Res M. Tuberculosis PCR Path Cons Comment AFB Smear (Ref Lab) 05/28/21 05/28/21 05/28/21 22:18 22:18 22:18 WBC 24.72 H RBC 4.17 L Hgb 11.5 L Hct 35.0 L MCV 83.9 MCH 27.6 MCHC 32.9 RDW 14.8 H Plt Count 521 H MPV 10.7 Immature Gran % See Differential Neutrophils % 74.0 Band Neutrophils % 1 Lymphocytes % 11.0 Atypical Lymphs % 1 Monocytes % 13.0 Eosinophils % 0.0 Basophils % 0.0 Nucleated RBC % 1 Absolute Neutrophils 18.54 H Absolute Lymphocytes 2.97 Absolute Monocytes 3.21 H Absolute Eosinophils 0.00 Absolute Basophils 0.00 RBC Morphology See Below Xanthochromia [place] Bodies 1+ [place] Cells/Echinocytes 3+ Acanthocytes (Spur) 1+ PT 10.6 INR 1.1 VBG pH VBG pCO2 VBG pO2 VBG HCO3 VBG Total CO2 VBG O2 Saturation VBG Base Excess VBG Lactate 1.0 Sodium Potassium Chloride Carbon Dioxide Anion Gap BUN Creatinine Estimated GFR/1.73 m2 Glucose Hemoglobin A1c Calcium Magnesium Total Bilirubin Conjugated Bilirubin AST ALT Alkaline Phosphatase Ammonia Troponin I C-Reactive Protein Total Protein Albumin Lipase Procalcitonin 0.2 TSH Free T4 Fluid Source Fluid Color Fluid Clarity Fluid WBC Fld Polynuclear WBCs % Fluid Mononuclear Cell Fluid Other Cells CSF Tube Number CSF Color CSF Clarity CSF WBC CSF RBC CSF Neutrophils % CSF Lymphocytes % CSF Monos/Macrophage % CSF Other Cells % CSF Diff Comment CSF Glucose CSF Total Protein Stl C.difficile Tox PCR COVID-19 Source SARS-CoV-2 (PCR) AFB Source AFB Culture Final Res M. Tuberculosis PCR Path Cons Comment AFB Smear (Ref Lab) 05/28/21 05/28/21 05/28/21 22:18 22:18 22:18 WBC RBC Hgb Hct MCV MCH MCHC RDW Plt Count MPV Immature Gran % Neutrophils % Band Neutrophils % Lymphocytes % Atypical Lymphs % Monocytes % Eosinophils % Basophils % Nucleated RBC % Absolute Neutrophils Absolute Lymphocytes Absolute Monocytes Absolute Eosinophils Absolute Basophils RBC Morphology Xanthochromia [place] Bodies [place] Cells/Echinocytes Acanthocytes (Spur) PT INR VBG pH 7.32 VBG pCO2 27 L VBG pO2 46 VBG HCO3 14 L VBG Total CO2 13 L VBG O2 Saturation 85 VBG Base Excess -12 L VBG Lactate Sodium Potassium Chloride Carbon Dioxide Anion Gap BUN Creatinine Estimated GFR/1.73 m2 Glucose Hemoglobin A1c Calcium Magnesium Total Bilirubin Conjugated Bilirubin AST ALT Alkaline Phosphatase Ammonia Troponin I C-Reactive Protein Total Protein Albumin Lipase 22 Procalcitonin TSH Free T4 Fluid Source Fluid Color Fluid Clarity Fluid WBC Fld Polynuclear WBCs % Fluid Mononuclear Cell Fluid Other Cells CSF Tube Number CSF Color CSF Clarity CSF WBC CSF RBC CSF Neutrophils % CSF Lymphocytes % CSF Monos/Macrophage % CSF Other Cells % CSF Diff Comment CSF Glucose CSF Total Protein Stl C.difficile Tox PCR COVID-19 Source Nasal/Nares SARS-CoV-2 (PCR) Negative AFB Source AFB Culture Final Res M. Tuberculosis PCR Path Cons Comment AFB Smear (Ref Lab) 05/29/21 05/29/21 05/29/21 02:05 02:05 02:45 WBC RBC Hgb Hct MCV MCH MCHC RDW Plt Count MPV Immature Gran % Neutrophils % Band Neutrophils % Lymphocytes % Atypical Lymphs % Monocytes % Eosinophils % Basophils % Nucleated RBC % Absolute Neutrophils Absolute Lymphocytes Absolute Monocytes Absolute Eosinophils Absolute Basophils RBC Morphology Xanthochromia [place] Bodies [place] Cells/Echinocytes Acanthocytes (Spur) PT INR VBG pH VBG pCO2 VBG pO2 VBG HCO3 VBG Total CO2 VBG O2 Saturation VBG Base Excess VBG Lactate Sodium 139 Potassium 3.0 L Chloride 109 H Carbon Dioxide 16.4 L Anion Gap 13.6 H BUN 8 Creatinine 0.9 Estimated GFR/1.73 m2 >= 60.00 Glucose 87 D Hemoglobin A1c Calcium 8.7 Magnesium Total Bilirubin Conjugated Bilirubin AST ALT Alkaline Phosphatase Ammonia 42 H Troponin I C-Reactive Protein Total Protein Albumin Lipase Procalcitonin TSH Free T4 Fluid Source Fluid Color Fluid Clarity Fluid WBC Fld Polynuclear WBCs % Fluid Mononuclear Cell Fluid Other Cells CSF Tube Number CSF Color CSF Clarity CSF WBC CSF RBC CSF Neutrophils % CSF Lymphocytes % CSF Monos/Macrophage % CSF Other Cells % CSF Diff Comment CSF Glucose 190 H CSF Total Protein Stl C.difficile Tox PCR COVID-19 Source SARS-CoV-2 (PCR) AFB Source AFB Culture Final Res M. Tuberculosis PCR Path Cons Comment AFB Smear (Ref Lab) 05/29/21 05/29/21 05/29/21 02:45 02:45 02:45 WBC RBC Hgb Hct MCV MCH MCHC RDW Plt Count MPV Immature Gran % Neutrophils % Band Neutrophils % Lymphocytes % Atypical Lymphs % Monocytes % Eosinophils % Basophils % Nucleated RBC % Absolute Neutrophils Absolute Lymphocytes Absolute Monocytes Absolute Eosinophils Absolute Basophils RBC Morphology Xanthochromia Absent [place] Bodies [place] Cells/Echinocytes Acanthocytes (Spur) PT INR VBG pH VBG pCO2 VBG pO2 VBG HCO3 VBG Total CO2 VBG O2 Saturation VBG Base Excess VBG Lactate Sodium Potassium Chloride Carbon Dioxide Anion Gap BUN Creatinine Estimated GFR/1.73 m2 Glucose Hemoglobin A1c Calcium Magnesium Total Bilirubin Conjugated Bilirubin AST ALT Alkaline Phosphatase Ammonia Troponin I C-Reactive Protein Total Protein Albumin Lipase Procalcitonin TSH Free T4 Fluid Source Cancelled Fluid Color Cancelled Fluid Clarity Cancelled Fluid WBC Cancelled Fld Polynuclear WBCs % Cancelled Fluid Mononuclear Cell Cancelled Fluid Other Cells Cancelled CSF Tube Number 4 CSF Color Colorless CSF Clarity Clear CSF WBC 11 H CSF RBC 1 CSF Neutrophils % CSF Lymphocytes % CSF Monos/Macrophage % CSF Other Cells % CSF Diff Comment Performed CSF Glucose CSF Total Protein 34 Stl C.difficile Tox PCR COVID-19 Source SARS-CoV-2 (PCR) AFB Source Cancelled AFB Culture Final Res Cancelled M. Tuberculosis PCR Cancelled Path Cons Comment Cancelled AFB Smear (Ref Lab) Cancelled 05/29/21 05/29/21 05/29/21 07:23 07:28 07:28 WBC 25.40 H* RBC 4.25 L Hgb 11.6 L Hct 34.4 L MCV 80.9 D MCH 27.3 MCHC 33.7 RDW 14.7 H Plt Count 521 H MPV 10.7 Immature Gran % 0.9 Neutrophils % 84.4 Band Neutrophils % Lymphocytes % 7.3 Atypical Lymphs % Monocytes % 7.3 Eosinophils % 0.0 Basophils % 0.1 Nucleated RBC % 0 Absolute Neutrophils 21.44 H Absolute Lymphocytes 1.85 Absolute Monocytes 1.85 H Absolute Eosinophils 0.00 Absolute Basophils 0.03 RBC Morphology See Below Xanthochromia Cancelled [place] Bodies [place] Cells/Echinocytes 3+ Acanthocytes (Spur) PT INR VBG pH VBG pCO2 VBG pO2 VBG HCO3 VBG Total CO2 VBG O2 Saturation VBG Base Excess VBG Lactate Sodium 139 Potassium 2.9 L Chloride 108 H Carbon Dioxide 21.6 Anion Gap 9.4 BUN 6 L Creatinine 0.9 Estimated GFR/1.73 m2 >= 60.00 Glucose 159 H Hemoglobin A1c Calcium 8.4 L Magnesium 1.7 L Total Bilirubin Conjugated Bilirubin AST ALT Alkaline Phosphatase Ammonia Troponin I 0.68 H* C-Reactive Protein Total Protein Albumin Lipase Procalcitonin TSH Free T4 Fluid Source Fluid Color Fluid Clarity Fluid WBC Fld Polynuclear WBCs % Fluid Mononuclear Cell Fluid Other Cells CSF Tube Number Cancelled CSF Color Cancelled CSF Clarity Cancelled CSF WBC Cancelled CSF RBC Cancelled CSF Neutrophils % Cancelled CSF Lymphocytes % Cancelled CSF Monos/Macrophage % Cancelled CSF Other Cells % Cancelled CSF Diff Comment Cancelled CSF Glucose CSF Total Protein Stl C.difficile Tox PCR COVID-19 Source SARS-CoV-2 (PCR) AFB Source AFB Culture Final Res M. Tuberculosis PCR Path Cons Comment AFB Smear (Ref Lab) 05/29/21 05/29/21 05/29/21 07:28 07:28 07:28 WBC RBC Hgb Hct MCV MCH MCHC RDW Plt Count MPV Immature Gran % Neutrophils % Band Neutrophils % Lymphocytes % Atypical Lymphs % Monocytes % Eosinophils % Basophils % Nucleated RBC % Absolute Neutrophils Absolute Lymphocytes Absolute Monocytes Absolute Eosinophils Absolute Basophils RBC Morphology Xanthochromia [place] Bodies [place] Cells/Echinocytes Acanthocytes (Spur) PT INR VBG pH 7.41 VBG pCO2 30 L VBG pO2 39 VBG HCO3 19 L VBG Total CO2 17 L VBG O2 Saturation 82 VBG Base Excess -6 L VBG Lactate Sodium Potassium Chloride Carbon Dioxide Anion Gap BUN Creatinine Estimated GFR/1.73 m2 Glucose Hemoglobin A1c Calcium Magnesium Total Bilirubin Conjugated Bilirubin AST ALT Alkaline Phosphatase Ammonia Troponin I C-Reactive Protein Total Protein 6.1 L Albumin Lipase 20 Procalcitonin TSH Free T4 Fluid Source Fluid Color Fluid Clarity Fluid WBC Fld Polynuclear WBCs % Fluid Mononuclear Cell Fluid Other Cells CSF Tube Number CSF Color CSF Clarity CSF WBC CSF RBC CSF Neutrophils % CSF Lymphocytes % CSF Monos/Macrophage % CSF Other Cells % CSF Diff Comment CSF Glucose CSF Total Protein Stl C.difficile Tox PCR COVID-19 Source SARS-CoV-2 (PCR) AFB Source AFB Culture Final Res M. Tuberculosis PCR Path Cons Comment AFB Smear (Ref Lab) 05/29/21 07:40 WBC RBC Hgb Hct MCV MCH MCHC RDW Plt Count MPV Immature Gran % Neutrophils % Band Neutrophils % Lymphocytes % Atypical Lymphs % Monocytes % Eosinophils % Basophils % Nucleated RBC % Absolute Neutrophils Absolute Lymphocytes Absolute Monocytes Absolute Eosinophils Absolute Basophils RBC Morphology Xanthochromia [place] Bodies [place] Cells/Echinocytes Acanthocytes (Spur) PT INR VBG pH VBG pCO2 VBG pO2 VBG HCO3 VBG Total CO2 VBG O2 Saturation VBG Base Excess VBG Lactate Sodium Potassium Chloride Carbon Dioxide Anion Gap BUN Creatinine Estimated GFR/1.73 m2 Glucose Hemoglobin A1c Calcium Magnesium Total Bilirubin Conjugated Bilirubin AST ALT Alkaline Phosphatase Ammonia Troponin I C-Reactive Protein Total Protein Albumin Lipase Procalcitonin TSH Free T4 Fluid Source Fluid Color Fluid Clarity Fluid WBC Fld Polynuclear WBCs % Fluid Mononuclear Cell Fluid Other Cells CSF Tube Number CSF Color CSF Clarity CSF WBC CSF RBC CSF Neutrophils % CSF Lymphocytes % CSF Monos/Macrophage % CSF Other Cells % CSF Diff Comment CSF Glucose CSF Total Protein Stl C.difficile Tox PCR Negative COVID-19 Source SARS-CoV-2 (PCR) AFB Source AFB Culture Final Res M. Tuberculosis PCR Path Cons Comment AFB Smear (Ref Lab) Review of Systems All systems reviewed & are unremarkable except as noted in HPI and below Time spent with patient Time spent in Critical Care: 60 Time spent in Critical care included: Coordination of care, Chart review, Documenting critically ill care, Time at immediate bedside and Discussing critically ill care with other medical staff
[2021-05-29 11:59] LABS: Ammonia 34 umol/L (11-32)
[2021-05-29 12:02] LABS: Anion Gap 8.6 mmol/L (3-11); BUN 4 mg/dL (7-18); CO2 22.4 mmol/L (21.0-32.0); CREATININE 0.8 mg/dL (0.70-1.30); Calcium 8.2 mg/dL (8.5-10.1); Chloride 107 mmol/L (98-107); Glucose 170 mg/dL (74-106); Magnesium 1.6 mg/dL (1.8-2.4); PHOSPHORUS < 2.0 mg/dL (2.6-4.7); Potassium 3.2 mmol/L (3.5-5.1); Sodium 138 mmol/L (136-145)
--- NOTE | 2021-05-29 12:36 | W.INDIABCONS ---
Date of service: 05/29/21 Time of Service: 12:36 Diabetes Inpatient Consult DESCRIPTION/ASSESSMENT: Acknowledge consult for diabetes education. Pt. is currently alert and oriented x 2. A1C of 12.2 indicates that blood sugars have been well above target recently. Current blood sugars have been less than 180, so at target. BMI is 20.4 kg/m2 which is WNL. INTERVENTION: Unable to assess pt's diabetes education needs at this time due to his mental status. PLAN: Will follow up with pt. prior to d/c for diabetes education and self- management. Time Spent in Nutritional Counseling and Treatment: 0
[2021-05-29] MEDS: MAGNESIUM SULFATE 2 GM/50 ML BAG IVPB (12:53)
[2021-05-29] MEDS: MORPHine 2 MG/ML SYR IVP ×2 (12:53→13:47)
[2021-05-29] MEDS: Metoclopramide 10 MG/2 ML VIAL IVP ×2 (13:08→20:25)
[2021-05-29] MEDS: Normal Saline Flush 10 ML SYR IVP ×7 (13:09→20:26)
[2021-05-29] MEDS: Aspirin 300 MG SUPP PR (14:57)
[2021-05-29] MEDS: MORPHine 4 MG/ML SYR IVP ×3 (15:18→23:50)
[2021-05-29 18:21] LABS: Cryptococcal Antigen CSF Negative (Negative)
[2021-05-29 18:41] LABS: Anion Gap 9.1 mmol/L (3-11); BUN 2 mg/dL (7-18); CO2 23.9 mmol/L (21.0-32.0); CREATININE 0.8 mg/dL (0.70-1.30); Calcium 8.2 mg/dL (8.5-10.1); Chloride 106 mmol/L (98-107); Glucose 79 mg/dL (74-106); Potassium 3.3 mmol/L (3.5-5.1); Sodium 139 mmol/L (136-145)
[2021-05-29 21:16] LABS: HSV 1 DNA Result Negative (Negative); HSV 2 DNA Result Negative (Negative)
[2021-05-29 23:42] LABS: Campylobacter PCR Negative (Negative); Salmonella PCR Negative (Negative); Shiga Toxin PCR Negative (Negative); Shigella/Enteroinvasive Ecoli Negative (Negative)
[2021-05-30] VITALS (66 sets, daily range): BP systolic 83–155; BP diastolic 57–107; PULSE 71–113; RESP 9–35; TEMP 36.4–36.9; O2SAT 94–98
[2021-05-30 00:54] LABS: Anion Gap 5.1 mmol/L (3-11); BUN 2 mg/dL (7-18); CO2 26.9 mmol/L (21.0-32.0); CREATININE 0.6 mg/dL (0.70-1.30); Calcium 8.1 mg/dL (8.5-10.1); Chloride 106 mmol/L (98-107); Glucose 124 mg/dL (74-106); Potassium 3.4 mmol/L (3.5-5.1); Sodium 138 mmol/L (136-145)
[2021-05-30] MEDS: MORPHine 4 MG/ML SYR IVP (02:08)
[2021-05-30] MEDS: POTASSIUM CHLORIDE/D5-0.9%NACL 1,000 ML 150 MEQ IV ×3 (06:04→19:25)
[2021-05-30 07:08] LABS: HCT 38.7 % (40.0-50.0); HGB 13.1 g/dL (13.5-17.5); MCH 27.2 pg (27.0-33.0); MCHC 33.9 % (32.0-36.0); MCV 80.5 fL (80-95); MPV 10.8 fL (8.0-11.0); Nucleated RBC 0 %; RBC 4.81 10^6/uL (4.36-5.78); RDW 14.6 % (11.8-14.1); RDW-SD 42.4 fL; WBC 19.19 10^3/uL (4.4-10.8)
[2021-05-30 07:20] LABS: PHOSPHORUS < 2.0 mg/dL (2.6-4.7)
[2021-05-30] MEDS: MORPHine 2 MG/ML SYR 4 MG IVP ×2 (07:28→13:29)
[2021-05-30] MEDS: Heparin 5,000 UNITS/ML VIAL 5000 UNITS SC ×3 (07:30→23:13)
[2021-05-30] MEDS: ACETAMINOPHEN 1,000 MG/100 ML BTL 400 MG IVPB ×2 (07:30→16:30)
[2021-05-30] MEDS: Pantoprazole 40 MG VIAL IVP (07:31)
[2021-05-30] MEDS: Normal Saline Flush 10 ML SYR IVP ×3 (07:32→19:25)
[2021-05-30 07:53] LABS: Absolute Eosinophil Count 0.19 10^3/uL (0.0-0.7); Absolute Lymphocyte Count 3.45 10^3/uL (1.2-3.4); Absolute Monocyte Count 0.58 10^3/uL (0.1-0.8); Absolute Neutrophil Count 14.97 10^3/uL (1.2-6.7); Atypical Lymphocytes % 5; Diff Comment Manual Differential
[2021-05-30 07:54] LABS: Acanthocytes 2+; Anisocytosis 1+; Howell-Jolly Bodies Present; Microcytosis 1+; Poikilocytes 2+; Polychromasia Present
[2021-05-30 07:55] LABS: Platelet Count 604 10^3/uL (130-400)
--- NOTE | 2021-05-30 08:21 | PGE_ITS ---
Date of Service Date of service: 05/30/21 Time of Service: 15:00 Assessment and Plan Assessment and plan (1) Gram negative sepsis: Status: Acute Assessment and plan: Due to E. Coli, present on admission. Per records from [facility], the patient has colitis and had been initiated on zosyn. C.Diff negative. Continue zosyn. Blood cultures repeated. Port has been cultured. Continue IVF. Expect that the source is intraabdominal. Consider extraction of the port. (2) DKA (diabetic ketoacidosis): Status: Resolved Assessment and plan: Resolved. Continue insulin gtt as not reliably tolerating PO. Did receive his home dose of lantus today. Qualifiers: Diabetes mellitus type: due to underlying condition Diabetes mellitus complication detail: without coma Qualified Code(s): E08.10 - Diabetes mellitus due to underlying condition with ketoacidosis without coma (3) Elevated troponin: Status: Acute Assessment and plan: Suspect type 2 NSTEMI. Cardiology consult. Asa rectal. Echo with LVEF of 45%, which is new. (4) Toxic metabolic encephalopathy: Status: Acute Assessment and plan: Suspect that this is due to E coli sepsis. DKA should no longer be a factor. Does also have elevated ammonia. Consider lactulose vs rifaxamine when taking PO. Monitor mental status (5) Hyperammonemia: Status: Acute Assessment and plan: As above (6) Hypomagnesemia: Status: Acute Assessment and plan: Replete and recheck in am (7) Hypophosphatemia: Status: Acute Assessment and plan: Replete and recheck in am (8) History of pancreatic islet cell transplantation: Status: Chronic Assessment and plan: For chronic pancreatitis due to above. With secondary T1DM. He is not on immunosupressants. 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 (10) Hypokalemia: Status: Acute Assessment and plan: Replete, recheck in am (11) Secondary diabetes mellitus: Status: Chronic Assessment and plan: Insulin dependent as s/p pancreatectomy, acts as T1DM. Schedule lantus in am. Keep on insulin gtt while not eating. Keep in ICU (12) Cystic fibrosis: Status: Chronic Assessment and plan: Referral placed for [facility] center. (13) DVT prophylaxis: Status: Acute Assessment and plan: SC heparin (14) Discharge planning issues: Status: Acute Assessment and plan: Full code. Keep in ICU. Total Critical Care Time 40 minutes. Subjective Subjective Interval history since last seen: Mr Wallace reports feeling terrible. Specifically, he reports severe abdominal pain. He states that morphine does not usually work for him, but dilaudid does. He usually required 4 mg doses. He is nauseated and has vomited. He is too uncomfortable to talk to me about anything else. He is more awake today. E. Coli in blood cultures. BG 136 at 8 am. Mental status much better, but not baseline. Urinating a lot. Normotensive. Vomited when tried eating. Exam Narrative Exam Narrative: General: Middle-aged male who is A&Ox2, uncomfortable/in visible pain, but much clearer/more awake than yesterday HEENT: EOMI, MMM Heart: RRR, no m/r/g Lungs: CTAB Abdomen: soft, +hypoactive bowel sounds, diffusely tender. Extremities: no edema BLE's. +1 BLE pedal pulses Objective Last Vital Signs Temp 36.9 C 05/30/21 03:41 Pulse 87 05/30/21 03:41 Resp 18 05/30/21 03:41 BP 133/95 H 05/30/21 03:41 Pulse Ox 96 05/30/21 03:41 Laboratory Results - last 24 hr 05/29/21 05/29/21 05/29/21 02:45 02:45 07:23 WBC RBC Hgb Hct MCV MCH MCHC RDW Plt Count MPV Immature Gran % Neutrophils % Lymphocytes % Atypical Lymphs % Monocytes % Eosinophils % Basophils % Nucleated RBC % Absolute Neutrophils Absolute Lymphocytes Absolute Monocytes Absolute Eosinophils Absolute Basophils RBC Morphology Polychromasia Xanthochromia Absent Cancelled Poikilocytosis Anisocytosis Microcytosis [place] Bodies Acanthocytes (Spur) Sodium Potassium Chloride Carbon Dioxide Anion Gap BUN Creatinine Estimated GFR/1.73 m2 Glucose Calcium Phosphorus Magnesium Ammonia Fluid Source Cancelled Fluid Color Cancelled Fluid Clarity Cancelled Fluid WBC Cancelled Fld Polynuclear WBCs % Cancelled Fluid Mononuclear Cell Cancelled Fluid Other Cells Cancelled CSF Tube Number 4 Cancelled CSF Color Colorless Cancelled CSF Clarity Clear Cancelled CSF WBC 11 H Cancelled CSF RBC 1 Cancelled CSF Neutrophils % Cancelled CSF Lymphocytes % Cancelled CSF Monos/Macrophage % Cancelled CSF Other Cells % Cancelled CSF Diff Comment Performed Cancelled Stl C.difficile Tox PCR AFB Source Cancelled AFB Culture Final Res Cancelled M. Tuberculosis PCR Cancelled Path Cons Comment Cancelled AFB Smear (Ref Lab) Cancelled 05/29/21 05/29/21 05/29/21 07:40 11:30 11:30 WBC RBC Hgb Hct MCV MCH MCHC RDW Plt Count MPV Immature Gran % Neutrophils % Lymphocytes % Atypical Lymphs % Monocytes % Eosinophils % Basophils % Nucleated RBC % Absolute Neutrophils Absolute Lymphocytes Absolute Monocytes Absolute Eosinophils Absolute Basophils RBC Morphology Polychromasia Xanthochromia Poikilocytosis Anisocytosis Microcytosis [place] Bodies Acanthocytes (Spur) Sodium 138 Potassium 3.2 L Chloride 107 Carbon Dioxide 22.4 Anion Gap 8.6 BUN 4 L Creatinine 0.8 Estimated GFR/1.73 m2 >= 60.00 Glucose 170 H Calcium 8.2 L Phosphorus < 2.0 L Magnesium 1.6 L Ammonia 34 H Fluid Source Fluid Color Fluid Clarity Fluid WBC Fld Polynuclear WBCs % Fluid Mononuclear Cell Fluid Other Cells CSF Tube Number CSF Color CSF Clarity CSF WBC CSF RBC CSF Neutrophils % CSF Lymphocytes % CSF Monos/Macrophage % CSF Other Cells % CSF Diff Comment Stl C.difficile Tox PCR Negative AFB Source AFB Culture Final Res M. Tuberculosis PCR Path Cons Comment AFB Smear (Ref Lab) 05/29/21 05/30/21 05/30/21 17:50 00:31 06:29 WBC 19.19 H RBC 4.81 Hgb 13.1 L Hct 38.7 L MCV 80.5 MCH 27.2 MCHC 33.9 RDW 14.6 H Plt Count 604 H MPV 10.8 Immature Gran % 0.0 Neutrophils % 78.0 Lymphocytes % 13.0 Atypical Lymphs % 5 Monocytes % 3.0 Eosinophils % 1.0 Basophils % 0.0 Nucleated RBC % 0 Absolute Neutrophils 14.97 H Absolute Lymphocytes 3.45 H Absolute Monocytes 0.58 Absolute Eosinophils 0.19 Absolute Basophils 0.00 RBC Morphology See Below Polychromasia Present Xanthochromia Poikilocytosis 2+ Anisocytosis 1+ Microcytosis 1+ [place] Bodies Present Acanthocytes (Spur) 2+ Sodium 139 138 Potassium 3.3 L 3.4 L Chloride 106 106 Carbon Dioxide 23.9 26.9 Anion Gap 9.1 5.1 BUN 2 L 2 L Creatinine 0.8 0.6 L Estimated GFR/1.73 m2 >= 60.00 >= 60.00 Glucose 79 D 124 H Calcium 8.2 L 8.1 L Phosphorus Magnesium Ammonia Fluid Source Fluid Color Fluid Clarity Fluid WBC Fld Polynuclear WBCs % Fluid Mononuclear Cell Fluid Other Cells CSF Tube Number CSF Color CSF Clarity CSF WBC CSF RBC CSF Neutrophils % CSF Lymphocytes % CSF Monos/Macrophage % CSF Other Cells % CSF Diff Comment Stl C.difficile Tox PCR AFB Source AFB Culture Final Res M. Tuberculosis PCR Path Cons Comment AFB Smear (Ref Lab) 05/30/21 05/30/21 06:29 06:29 WBC RBC Hgb Hct MCV MCH MCHC RDW Plt Count MPV Immature Gran % Neutrophils % Lymphocytes % Atypical Lymphs % Monocytes % Eosinophils % Basophils % Nucleated RBC % Absolute Neutrophils Absolute Lymphocytes Absolute Monocytes Absolute Eosinophils Absolute Basophils RBC Morphology Polychromasia Xanthochromia Poikilocytosis Anisocytosis Microcytosis [place] Bodies Acanthocytes (Spur) Sodium Potassium Chloride Carbon Dioxide Anion Gap BUN Creatinine Estimated GFR/1.73 m2 Glucose Calcium Phosphorus < 2.0 L Magnesium 2.0 Ammonia Fluid Source Fluid Color Fluid Clarity Fluid WBC Fld Polynuclear WBCs % Fluid Mononuclear Cell Fluid Other Cells CSF Tube Number CSF Color CSF Clarity CSF WBC CSF RBC CSF Neutrophils % CSF Lymphocytes % CSF Monos/Macrophage % CSF Other Cells % CSF Diff Comment Stl C.difficile Tox PCR AFB Source AFB Culture Final Res M. Tuberculosis PCR Path Cons Comment AFB Smear (Ref Lab)
[2021-05-30 08:24] LABS: ALT 19 U/L (16-63); AST 17 U/L (15-37); Albumin 2.8 g/dL (3.4-5.0); Alkaline Phosphatase 172 U/L (46-116); Anion Gap 6.8 mmol/L (3-11); BUN 1 mg/dL (7-18); Bilirubin, Direct 0.2 mg/dL (0.0-0.2); Bilirubin, Total 0.8 mg/dL (0.2-1.0); CO2 28.2 mmol/L (21.0-32.0); CREATININE 0.6 mg/dL (0.70-1.30); Calcium 8.2 mg/dL (8.5-10.1); Chloride 104 mmol/L (98-107); Glucose 111 mg/dL (74-106); Potassium 3.2 mmol/L (3.5-5.1); Sodium 139 mmol/L (136-145); Total Protein 6.3 g/dL (6.4-8.2)
--- NOTE | 2021-05-30 08:46 | PDOC.CMPRO ---
- If Service Date Differs Date of service: 05/30/21 Time of Service: 08:48 Care Management Progress Note S/O: Anderson remains acute in the ICU this morning, per MD anticipate he may transition to M/S level of care today. He reportedly is asking for food, and his mental status is improving. CM continues to follow. Anderson was transferred from [place], [place]. 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 Previous surgeries include heart catheterization, central venous catheter placement, multiple EGDs, incisional hernia repair, knee surgery, pancreatectomy and partial gastrectomy, islet cell transplantation history of cholecystectomy and past history of spinal cord stimulator. He is on disability because of chronic pancreatitis pain anxiety and rheumatoid arthritis. He lives with his . A: 55 year old male admitted to [facility] 05/28/21 for metabolic acidosis, suspect DKA, Type 2 NSTEMI P: Discharge plan dependent on patient progress, mental status improvements noted for today, however Anderson remains lethargic, and confused re: time/place. Anticipate Anderson will be discharged home via private vehicle with when medically cleared by MD. Will follow up with community providers and discharge plan of care.
[2021-05-30] MEDS: Insulin Glargine 300 UNITS/3 ML PEN 22 UNITS SC (09:02)
[2021-05-30 12:21] LABS: Anion Gap 5.1 mmol/L (3-11); BUN 2 mg/dL (7-18); CO2 27.9 mmol/L (21.0-32.0); CREATININE 0.6 mg/dL (0.70-1.30); Calcium 7.8 mg/dL (8.5-10.1); Chloride 108 mmol/L (98-107); Glucose 147 mg/dL (74-106); Potassium 3.6 mmol/L (3.5-5.1); Sodium 141 mmol/L (136-145)
[2021-05-30] MEDS: INSULIN REGULAR IN 0.9 % NACL 100 UNIT/100 ML BAG IV (13:30)
[2021-05-30 13:41] LABS: Bilirubin Negative (Negative); Blood Moderate (Negative); Clarity Clear (Clear); Glucose Negative (Negative); Ketones Negative (Negative); Leukocyte Esterase Negative (Negative); Nitrite Negative (Negative); Specific Gravity 1.025 (1.005-1.025); Urobilinogen 0.2 EU/dL (Up TO 0.2)
[2021-05-30 13:54] LABS: Bacteria Moderate HPF (Negative); C & S Indicated? Yes; Casts Negative LPF (Negative); Crystals Negative HPF (Negative); Epithelial Cells Negative HPF (Negative); Mucus Heavy (Negative); RBC >50 HPF (0-2)
[2021-05-30] MEDS: HYDROmorphone 2 MG/ML VIAL IVP ×2 (15:20→20:01)
[2021-05-30] MEDS: Metoclopramide 10 MG/2 ML VIAL IVP (15:21)
[2021-05-30] MEDS: PIPERACILLIN/TAZO 4.5 GM in Normal Saline 100 ML 200 ML IVPB ×2 (17:34→23:01)
[2021-05-30] MEDS: Dextrose 50%-Water 25 GM/50 ML SYR IVP (18:40)
[2021-05-31] VITALS (47 sets, daily range): BP systolic 77–150; BP diastolic 55–92; PULSE 60–90; RESP 10–25; TEMP 36.2–37.3; O2SAT 94–99
[2021-05-31] MEDS: ACETAMINOPHEN 1,000 MG/100 ML BTL 400 MG IVPB ×3 (00:01→16:49)
[2021-05-31] MEDS: Normal Saline Flush 10 ML SYR IVP ×6 (00:59→21:11)
[2021-05-31 01:10] LABS: Anion Gap 3.4 mmol/L (3-11); BUN 3 mg/dL (7-18); CO2 28.6 mmol/L (21.0-32.0); CREATININE 0.7 mg/dL (0.70-1.30); Calcium 7.7 mg/dL (8.5-10.1); Chloride 111 mmol/L (98-107); Glucose 100 mg/dL (74-106); Potassium 3.4 mmol/L (3.5-5.1); Sodium 143 mmol/L (136-145)
[2021-05-31] MEDS: POTASSIUM CHLORIDE/D5-0.9%NACL 1,000 ML 150 MEQ IV (01:50)
[2021-05-31] MEDS: HYDROmorphone 2 MG/ML VIAL IVP ×5 (03:13→21:13)
[2021-05-31] MEDS: Metoclopramide 10 MG/2 ML VIAL IVP ×3 (03:14→16:52)
[2021-05-31] MEDS: PIPERACILLIN/TAZO 4.5 GM in Normal Saline 100 ML 200 ML IVPB ×2 (04:25→09:52)
[2021-05-31 07:11] LABS: Abs Immature Grans 0.05 10^3/uL (0.0-0.06); Absolute Basophil Count 0.03 10^3/uL (0.0-0.2); Absolute Eosinophil Count 0.03 10^3/uL (0.0-0.7); Absolute Lymphocyte Count 3.37 10^3/uL (1.2-3.4); Absolute Monocyte Count 1.27 10^3/uL (0.1-0.8); Basophils % 0.3; Eosinophils % 0.3; HCT 32.5 % (40.0-50.0); HGB 10.7 g/dL (13.5-17.5); Immature Grans % 0.5; Lymphocytes % 31.3; MCH 27.8 pg (27.0-33.0); MCHC 32.9 % (32.0-36.0); MCV 84.4 fL (80-95); MPV 11.2 fL (8.0-11.0); Monocytes % 11.8; Neutrophils % 55.8; Nucleated RBC 0 %; Platelet Count 477 10^3/uL (130-400); RBC 3.85 10^6/uL (4.36-5.78); RDW 15.6 % (11.8-14.1); RDW-SD 46.6 fL; WBC 10.76 10^3/uL (4.4-10.8)
[2021-05-31 07:28] LABS: Anion Gap 6.3 mmol/L (3-11); BUN 3 mg/dL (7-18); C-Reactive Protein 0.45 mg/dL (0.0-0.3); CO2 26.7 mmol/L (21.0-32.0); CREATININE 0.6 mg/dL (0.70-1.30); Calcium 7.9 mg/dL (8.5-10.1); Chloride 111 mmol/L (98-107); Glucose 201 mg/dL (74-106); Magnesium 1.6 mg/dL (1.8-2.4); PHOSPHORUS 2.1 mg/dL (2.6-4.7); Potassium 4.2 mmol/L (3.5-5.1); Sodium 144 mmol/L (136-145)
--- NOTE | 2021-05-31 08:28 | PGE_ITS ---
Date of Service Date of service: 05/31/21 Time of Service: 12:16 Assessment and Plan Assessment and plan (1) Gram negative sepsis: Status: Acute Assessment and plan: Due to E. Coli, present on admission. I discussed the case with radiology: Dr Ken also feels that the patient has colitis, but does not see any surgical emergent issues. Blood cultures remain positive on repeat. Will continue zosyn as WBC and the patient are clinically improving. Repeat blood cultures tomorrow. C.Diff ruled out. Continue IVF - the patient is not eating. Expect that the source is intraabdominal. Consider extraction of the port - will consult ID. (2) DKA (diabetic ketoacidosis): Status: Resolved Assessment and plan: Resolved. D/c insulin gtt. Continue basal bolus insulin. Ok to transfer out of ICU. Qualifiers: Diabetes mellitus type: due to underlying condition Diabetes mellitus complication detail: without coma Qualified Code(s): E08.10 - Diabetes mellitus due to underlying condition with ketoacidosis without coma (3) Elevated troponin: Status: Acute Assessment and plan: Suspect type 2 NSTEMI. Cardiology consulted and I discussed the patient with Dr Pink. She feels this is all demand ischemia rather than a true ACS and asa is not warranted. Echo with LVEF of 45%, which is new, but in setting of sepsis. Dr Pink is not sure that obtaining further ischemic workup would benefit the patient's condition or improve his quality of life. (4) Toxic metabolic encephalopathy: Status: Acute Assessment and plan: Suspect that this is due to E coli sepsis. DKA should no longer be a factor. Doing much better. Consider lactulose vs rifaxamine when taking PO. Monitor mental status (5) Hyperammonemia: Status: Acute Assessment and plan: As above (6) Hypomagnesemia: Status: Acute Assessment and plan: Replete and recheck in am (7) Hypophosphatemia: Status: Acute Assessment and plan: Replete and recheck in am (8) History of pancreatic islet cell transplantation: Status: Chronic Assessment and plan: For chronic pancreatitis due to above. With secondary T1DM. He is not on immunosupressants. Patient refused creon today. 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 (10) Hypokalemia: Status: Resolved Assessment and plan: Recheck in am (11) Secondary diabetes mellitus: Status: Chronic Assessment and plan: Insulin dependent as s/p pancreatectomy, acts as T1DM. On basal bolus insulin. Can likely transfer out of the ICU this afternoon. (12) Cystic fibrosis: Status: Chronic Assessment and plan: Referral placed for [facility] center. (13) DVT prophylaxis: Status: Acute Assessment and plan: SC heparin (14) Discharge planning issues: Status: Acute Assessment and plan: Full code. Anticipate transfer out of ICU this afternoon. Discussed with Dr Alvarez Subjective Subjective Interval history since last seen: Pain back to his baseline, 06/02 though. Nauseated. He states that he had been seen by pain management in the past. He is not telling me what they had recommended. He states that he normally take dilaudid 4 mg PO at home and 4 mg IV when he is in the hospital. He does not take any long acting pain medications. He has not met with palliative care in the past. His PCP is who is prescribing his dilaudid. He is requesting pain medicine now. We also talked about him having a feeding tube. It sounds like he had it twice and that it did not make him better, though the last time he had it was in 2013 around the time of his surgery. Trialing diet this am - he was interested in duane johan only. Denies dizziness, chest pain, shortness of breath. Exam Narrative Exam Narrative: General: Middle-aged male who is A&Ox3, much more awake today, however appears under influence of narcotic medications. In visible pain. HEENT: EOMI, MMM Heart: RRR, no m/r/g Lungs: CTAB Abdomen: soft, +hypoactive bowel sounds, diffusely tender. Extremities: no edema BLE's. +1 BLE pedal pulses Objective Last Vital Signs Temp 36.8 C 05/31/21 04:47 Pulse 70 05/31/21 06:47 Resp 14 05/31/21 06:47 BP 103/63 05/31/21 06:47 Pulse Ox 95 05/31/21 06:47 Laboratory Results - last 24 hr 05/29/21 05/29/21 05/29/21 02:45 02:45 07:40 WBC RBC Hgb Hct MCV MCH MCHC RDW Plt Count MPV Immature Gran % Neutrophils % Lymphocytes % Monocytes % Eosinophils % Basophils % Nucleated RBC % Absolute Neutrophils Absolute Lymphocytes Absolute Monocytes Absolute Eosinophils Absolute Basophils Sodium Potassium Chloride Carbon Dioxide Anion Gap BUN Creatinine Estimated GFR/1.73 m2 Glucose Calcium Phosphorus Magnesium C-Reactive Protein Urine Color Urine Clarity Urine pH Ur Specific [employer] Urine Protein Urine Ketones Urine Blood Urine Nitrite Urine Bilirubin Urine Urobilinogen Ur Leukocyte Esterase Urine RBC Urine WBC Ur Epithelial Cells Urine Crystals Urine Bacteria Urine Casts Urine Mucus Ur Culture Indicated? Urine Glucose CSF Cryptococcal Ag Ttr Not Applicable CSF Cryptococcus Ag Negative Stool Campylobacter PCR Negative Stool Salmonella PCR Negative Stool Shigella PCR Negative HSV Source Description Not Applicable HSV I DNA PCR Negative HSV II DNA PCR Negative Shiga Toxin (PCR) Negative 05/30/21 05/30/21 05/31/21 12:05 13:22 00:41 WBC RBC Hgb Hct MCV MCH MCHC RDW Plt Count MPV Immature Gran % Neutrophils % Lymphocytes % Monocytes % Eosinophils % Basophils % Nucleated RBC % Absolute Neutrophils Absolute Lymphocytes Absolute Monocytes Absolute Eosinophils Absolute Basophils Sodium 141 143 Potassium 3.6 3.4 L Chloride 108 H 111 H Carbon Dioxide 27.9 28.6 Anion Gap 5.1 3.4 BUN 2 L 3 L Creatinine 0.6 L 0.7 Estimated GFR/1.73 m2 >= 60.00 >= 60.00 Glucose 147 H 100 Calcium 7.8 L 7.7 L Phosphorus Magnesium C-Reactive Protein Urine Color Yellow Urine Clarity Clear Urine pH 6.[address] [employer] 1.025 Urine Protein Negative Urine Ketones Negative Urine Blood Moderate H Urine Nitrite Negative Urine Bilirubin Negative Urine Urobilinogen 0.2 Ur Leukocyte Esterase Negative Urine RBC >50 H Urine WBC 10-20 H Ur Epithelial Cells Negative Urine Crystals Negative Urine Bacteria Moderate Urine Casts Negative Urine Mucus Heavy Ur Culture Indicated? Yes Urine Glucose Negative CSF Cryptococcal Ag Ttr CSF Cryptococcus Ag Stool Campylobacter PCR Stool Salmonella PCR Stool Shigella PCR HSV Source Description HSV I DNA PCR HSV II DNA PCR Shiga Toxin (PCR) 05/31/21 05/31/21 06:23 06:23 WBC 10.76 D RBC 3.85 L Hgb 10.7 L D Hct 32.5 L MCV 84.4 D MCH 27.8 MCHC 32.9 RDW 15.6 H Plt Count 477 H MPV 11.2 H Immature Gran % 0.5 Neutrophils % 55.8 Lymphocytes % 31.3 Monocytes % 11.8 Eosinophils % 0.3 Basophils % 0.3 Nucleated RBC % 0 Absolute Neutrophils 6.00 Absolute Lymphocytes 3.37 Absolute Monocytes 1.27 H Absolute Eosinophils 0.03 Absolute Basophils 0.03 Sodium 144 Potassium 4.2 D Chloride 111 H Carbon Dioxide 26.7 Anion Gap 6.3 BUN 3 L Creatinine 0.6 L Estimated GFR/1.73 m2 >= 60.00 Glucose 201 H D Calcium 7.9 L Phosphorus 2.1 L Magnesium 1.6 L C-Reactive Protein 0.45 H Urine Color Urine Clarity Urine pH Ur Specific [employer] Urine Protein Urine Ketones Urine Blood Urine Nitrite Urine Bilirubin Urine Urobilinogen Ur Leukocyte Esterase Urine RBC Urine WBC Ur Epithelial Cells Urine Crystals Urine Bacteria Urine Casts Urine Mucus Ur Culture Indicated? Urine Glucose CSF Cryptococcal Ag Ttr CSF Cryptococcus Ag Stool Campylobacter PCR Stool Salmonella PCR Stool Shigella PCR HSV Source Description HSV I DNA PCR HSV II DNA PCR Shiga Toxin (PCR)
--- NOTE | 2021-05-31 08:48 | PDOC.CMPRO ---
- If Service Date Differs Date of service: 05/31/21 Time of Service: 08:48 Care Management Progress Note Background: Anderson was transferred from [place], [place]. 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 Previous surgeries include heart catheterization, central venous catheter placement, multiple EGDs, incisional hernia repair, knee surgery, pancreatectomy and partial gastrectomy, islet cell transplantation history of cholecystectomy and past history of spinal cord stimulator. He is on disability because of chronic pancreatitis pain anxiety and rheumatoid arthritis. He lives with his . S/O: Anderson was lying in bed when CM met with him. He was alert and oriented X 2. He reported 7 out of 10 abdominal pain, RN made aware. Anderson's normal pain level is 10, so this is somewhat improved. DONAL discussed his pain level with Dr. Martin. In addition, Anderson has not had much of an appetite, but shares with DONAL that he is ready to eat chicken noodle soup and toast and food was ordered from the Kitchen. His RN feels that a diabetic consult would be beneficial since he is now awake and verbalizes that he tends to drinks surgery drinks more than he consumes food. DONAL spoke with Karolina and she will meet with Anderson. A: 55 year old male admitted to [facility] 05/28/21 for metabolic acidosis, suspect DKA, Type 2 NSTEMI P: Anderson remains inpatient on IV antibiotics. Anticipate Anderson will be discharged home via private vehicle with when medically cleared by MD. Will follow up with community providers and discharge plan of care.
[2021-05-31] MEDS: MAGNESIUM SULFATE 2 GM/50 ML BAG IVPB (08:52)
--- NOTE | 2021-05-31 08:54 | W.CARDCONSUL ---
Date of service: 05/31/21 Time of Service: 08:55 Assessment and Plan Assessment and plan (1) Gram negative sepsis: Status: Acute (2) Elevated troponin: Status: Acute (3) Secondary diabetes mellitus: Status: Chronic Assessment and plan: This complicated patient has chronic abdominal pain following pancreatectomy in 2013. Subsequent to surgery he also has diabetes, presenting with sepsis and diabetic ketoacidosis. He has had multiple similar previous presentations, all of which have been notable for mild troponin elevation consistent with demand ischemia. His current echocardiogram shows mildly reduced left ventricular function, which is a new finding. His previous echoes all showed normal EF At this point, there is no specific cardiac recommendation other than supportive care. His E. coli sepsis should be treated. efforts to treat his abdominal pain are ongoing. I would recommend a follow-up echo in approximately 3 months when his current illness has resolved. Consideration could be given to nuclear stress testing, which the patient has had in the past, previously normal, but only if it will change management specialist The case was discussed personally with Dr. Martin History of Present Illness History of Present Illness Chief Complaint: Abdominal pain, elevated troponin Narrative: This is a complicated 55-year-old man who was transferred from [facility] because of diabetic ketoacidosis and sepsis. He has a history of cystic fibrosis, chronic pancreatitis, prior pancreatectomy and islet cell transplant in 2013. Unfortunately since his pancreatectomy he has been plagued with chronic abdominal pain which has resulted in multiple hospital admissions and need for pain control with opiates. Reportedly the patient came to the hospital complaining of abdominal pain, was noted to be acidotic with evidence of DKA, was transferred here. He had cardiac enzymes performed which showed mildly elevated troponin. His EKGs were normal. His abdominal pain was addressed as was his diabetes. Blood cultures have grown E. coli. As part of his evaluation an echocardiogram was performed. This showed reduced LV function diffusely, new compared to December when he was hospitalized at [facility]. At that time he had Klebsiella sepsis, normal EF by echo, elevated troponin felt to be due to demand ischemia secondary to sepsis Consults Consult date: 05/31/21 Requesting physician: Janell Martin Review of Systems Narrative: Not obtained [facility] Medical History (Updated 05/31/21 @ 08:58 by Caryl Pink MD) Anxiety Asthma Cardiomyopathy Depression DVT (deep venous thrombosis) GI bleed Pancreatitis Port-A-Cath in place Secondary diabetes mellitus insulin dependent (pt is s/p pancreatectomy). Surgical History H/O splenectomy History of cardiac catheterization History of cholecystectomy History of esophagogastroduodenoscopy (EGD) History of hernia repair Social History Smoking/Tobacco Use Status: Former Tobacco Use Quit Date: 08/24/09 Smoking risk assessment performed?: Yes Details: PT CAN NOT ANSWER QUESTIONS AT THIS TIME Exam Narrative Exam Narrative: Patient was not examined Results Last Vital Signs Temp 36.8 C 05/31/21 04:47 Pulse 70 05/31/21 06:47 Resp 14 05/31/21 06:47 BP 103/63 05/31/21 06:47 Pulse Ox 95 05/31/21 06:47 Labs Result diagrams: 05/31/21 06:23 05/31/21 06:23 Labs: Laboratory Results - last 24 hr 05/29/21 05/29/21 05/29/21 02:45 02:45 07:40 WBC RBC Hgb Hct MCV MCH MCHC RDW Plt Count MPV Immature Gran % Neutrophils % Lymphocytes % Monocytes % Eosinophils % Basophils % Nucleated RBC % Absolute Neutrophils Absolute Lymphocytes Absolute Monocytes Absolute Eosinophils Absolute Basophils Sodium Potassium Chloride Carbon Dioxide Anion Gap BUN Creatinine Estimated GFR/1.73 m2 Glucose Calcium Phosphorus Magnesium C-Reactive Protein Urine Color Urine Clarity Urine pH Ur Specific [place] Urine Protein Urine Ketones Urine Blood Urine Nitrite Urine Bilirubin Urine Urobilinogen Ur Leukocyte Esterase Urine RBC Urine WBC Ur Epithelial Cells Urine Crystals Urine Bacteria Urine Casts Urine Mucus Ur Culture Indicated? Urine Glucose CSF Cryptococcal Ag Ttr Not Applicable CSF Cryptococcus Ag Negative Stool Campylobacter PCR Negative Stool Salmonella PCR Negative Stool Shigella PCR Negative HSV Source Description Not Applicable HSV I DNA PCR Negative HSV II DNA PCR Negative Shiga Toxin (PCR) Negative 05/30/21 05/30/21 05/31/21 12:05 13:22 00:41 WBC RBC Hgb Hct MCV MCH MCHC RDW Plt Count MPV Immature Gran % Neutrophils % Lymphocytes % Monocytes % Eosinophils % Basophils % Nucleated RBC % Absolute Neutrophils Absolute Lymphocytes Absolute Monocytes Absolute Eosinophils Absolute Basophils Sodium 141 143 Potassium 3.6 3.4 L Chloride 108 H 111 H Carbon Dioxide 27.9 28.6 Anion Gap 5.1 3.4 BUN 2 L 3 L Creatinine 0.6 L 0.7 Estimated GFR/1.73 m2 >= 60.00 >= 60.00 Glucose 147 H 100 Calcium 7.8 L 7.7 L Phosphorus Magnesium C-Reactive Protein Urine Color Yellow Urine Clarity Clear Urine pH 6.0 Ur Specific [place] 1.025 Urine Protein Negative Urine Ketones Negative Urine Blood Moderate H Urine Nitrite Negative Urine Bilirubin Negative Urine Urobilinogen 0.2 Ur Leukocyte Esterase Negative Urine RBC >50 H Urine WBC 10-20 H Ur Epithelial Cells Negative Urine Crystals Negative Urine Bacteria Moderate Urine Casts Negative Urine Mucus Heavy Ur Culture Indicated? Yes Urine Glucose Negative CSF Cryptococcal Ag Ttr CSF Cryptococcus Ag Stool Campylobacter PCR Stool Salmonella PCR Stool Shigella PCR HSV Source Description HSV I DNA PCR HSV II DNA PCR Shiga Toxin (PCR) 05/31/21 05/31/21 06:23 06:23 WBC 10.76 D RBC 3.85 L Hgb 10.7 L D Hct 32.5 L MCV 84.4 D MCH 27.8 MCHC 32.9 RDW 15.6 H Plt Count 477 H MPV 11.2 H Immature Gran % 0.5 Neutrophils % 55.8 Lymphocytes % 31.3 Monocytes % 11.8 Eosinophils % 0.3 Basophils % 0.3 Nucleated RBC % 0 Absolute Neutrophils 6.00 Absolute Lymphocytes 3.37 Absolute Monocytes 1.27 H Absolute Eosinophils 0.03 Absolute Basophils 0.03 Sodium 144 Potassium 4.2 D Chloride 111 H Carbon Dioxide 26.7 Anion Gap 6.3 BUN 3 L Creatinine 0.6 L Estimated GFR/1.73 m2 >= 60.00 Glucose 201 H D Calcium 7.9 L Phosphorus 2.1 L Magnesium 1.6 L C-Reactive Protein 0.45 H Urine Color Urine Clarity Urine pH Ur Specific [place] Urine Protein Urine Ketones Urine Blood Urine Nitrite Urine Bilirubin Urine Urobilinogen Ur Leukocyte Esterase Urine RBC Urine WBC Ur Epithelial Cells Urine Crystals Urine Bacteria Urine Casts Urine Mucus Ur Culture Indicated? Urine Glucose CSF Cryptococcal Ag Ttr CSF Cryptococcus Ag Stool Campylobacter PCR Stool Salmonella PCR Stool Shigella PCR HSV Source Description HSV I DNA PCR HSV II DNA PCR Shiga Toxin (PCR)
[2021-05-31] MEDS: Insulin Glargine 300 UNITS/3 ML PEN 22 UNITS SC (09:08)
[2021-05-31] MEDS: Insulin Aspart 300 UNITS/3 ML PEN SC ×2 (09:10→17:28)
[2021-05-31] MEDS: Pantoprazole 40 MG VIAL IVP (09:15)
[2021-05-31] MEDS: Heparin 5,000 UNITS/ML VIAL 5000 UNITS SC ×2 (09:21→16:51)
--- NOTE | 2021-05-31 11:27 | FORBOD_PTH ---
PATIENT: Anderson Wallace LOC: [id number]#:[id number] AGE/SX: 55/M ROOM: 229 RE05/28/[address]: Janell Martin : 1965 BED: A DIS: 06/03/2021 SPEC #: [id number] RECD: 06/03/21 12:50 STATUS: EMILY REQ #: [id number] SAVANNAH: 05/31/21 11:[address]: Fidelia Warner DEPT: Surgical Specimen RECD BY: Chiquita Mckeon ENTERED: 06/03/21 12:54 SP TYPE: For Body OTHR DR: Janell Martin DO Unknown,Unknown Tissues: 1 - FOREIGN BODY Procedures: GROSS LEVEL 1 Comments: [id number] (GROSS ONLY - SENT FRESH) (REFRIGERATED)
--- NOTE | 2021-05-31 12:12 | PUCC_ITS ---
General Date of Service Date of service: 05/31/21 Time of Service: 07:45 Reason for Admission to ICU: DKA, E. coli bacteremia. Assessment and Plan Assessment and plan (1) DKA (diabetic ketoacidosis): Status: Resolved Qualifiers: Diabetes mellitus type: due to underlying condition Diabetes mellitus complication detail: without coma Qualified Code(s): E08.10 - Diabetes mellitus due to underlying condition with ketoacidosis without coma (2) Chronic inflammation of pancreas: Status: Acute Qualifiers: Pancreatitis type: other Qualified Code(s): K86.1 - Other chronic pancreatitis (3) History of pancreatic islet cell transplantation: Status: Chronic (4) Cystic fibrosis: Status: Chronic (5) Hypokalemia: Status: Acute (6) Hypomagnesemia: Status: Acute (7) Hypophosphatemia: Status: Acute (8) Elevated troponin: Status: Acute (9) Hyperammonemia: Status: Acute (10) Leukocytosis: Status: Acute Qualifiers: Leukocytosis type: unspecified Qualified Code(s): D72.829 - Elevated white blood cell count, unspecified (11) 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 Surrounding his cystic fibrosis diagnosis there is mention of it in an old gastroenterology note from [facility] however it does not seem as though he has been plugged in to the CF program there or has seen a professional development instructor before. Based on his CAT scan of his abdomen and pelvis the lower cuts of his lungs did not show any significant bronchiectasis. He chronically appears as though he is malnourished and does take pancreatic enzymes with his food. He is clinically improved today when compared to yesterday. He does have a port however being that it is E. coli bacteremia it is highly unlikely that it would be seated. Even though he is not tolerating p.o. well we will try with some clear liquids, either way I think he can be liberated from the insulin infusion at this time. Recommendations Pulmonary: Cystic Fibrosis - unclear history on this, no evidence of bronchiectasis in lower lung cuts of A/P CT - recommend referral to [facility] CF program - albuterol HFA q4hrs prn Cardiac: Elevated troponin - have trended down - likely demand in the setting of DKA New mildly reduced LV function - no acute concerns - cardiology has seen and I agree with simply repeat the TTE in a few months Renal: Hypokalemia - replete to 4.0 Hypophosphatemia - replete to 4.0 Hypomagnesemia - replete to 2.0 I&O: Intake & Output 05/28/21 05/29/21 05/30/21 05/31/21 23:59 23:59 23:59 23:59 Intake Total .392 / . 4599.693 / 4599.693 4312.117 / 4312.117 2325.784 / 2325.784 Output Total 3134 / 3134 1250 / 1250 825 / 825 Balance / 1465.693 / 9262.001 6562.117 / 3062.117 1500.784 / 1500.784 Weight 69.3 kg 64.4 kg 62.3 kg Daily Fluid Goal:: Even GI Nutrition: Pancreatic Insufficiency - likely due to pancreatic insufficiency - continue home pancreatic enzymes - Creon 24,000-76,000-120,000 4 caps tid with food - Creon 12,000- 38,000- 60, 000, 1 tab with non clear liquids - continue vitamin D2 50,000 1 cap q3 days - sucralfate - PPI - anti-emetics Hyperammonemia - would recommend hold lactulose or rifaximin for now in setting of pancreatic insufficiency s/p islet cell transplantation - no acute concerns Date of Last Bowel Movement: 05/29/21 Infectious Disease: Colitis with E. coli bacteremia - likely gut as source - D. diff negative - E. coli is sensitive to ceftriaxone so recommend antibiotic stewardship - unlikely for port to be seeding buy gram negative, since patient clinically improving would recommend against removal Hematologic: Leukocytosis - infectious likely, now improving Neurologic: No acute concerns Endocrine: DKA - recommend discontinuing insulin gtt at this point - continue Lantus - recommend q6 hr SSI regimen - once tolerating diet drip can be discontinued and his 5U of prandial insulin can be restarted - recommend an endocrinology referral at [facility] in the setting of his CF Lines: Port Prophylaxis: heparin Code Status: Resuscitation Status Full Code Subjective Critical and life-threatening events over the past 24 hours: This is a 55 yo male who was transferred from [facility] overnight due to altered mental status and DKA. He initially presented on 05/27/21 for abdominal pain. He states he takes 22U Lantus nightly and 5U prandial. He beleives that he was taking it regularly prior to presenting to the hospital but he is a bit foggy on when the last date he took his Lantus was. He has a history of islet cell transplantation with pancreatectomy and partial gastrectomy in the setting of chronic pancreatitis. He also has a history of rheumatoid arthritis. There is not a home medication list but on his med list from [facility] he is reportedly not on any immunosuppression. Per notes from [facility] he has heterogeneous CFRT mutations discovered in 2003. He has not seen [facility] pulmonary or been plugged into their CF program. It is likely that his pancreatic issues are related to his CF nor can I find evidence of any evaluation for treatment options. In addition to his pancreatic issues he also has a documented history of chronic sinusitis. This morning he is much more awake than when I saw him last. He is still on the insulin drip due to not tolerating PO but said he wants to try some duane johan. He is complaining of abdominal pain. When I ask if it is any different from the pain he has as an outpatient he said no. He does grimace when speaking to me. Exam Const General: cooperative and no acute distress Nutritional Appearance: thin HENMI Head: normocephalic Ears: external ears normal and no periauricular adenopathy General nose exam: nasal mucous membranes and turbinates normal Face and sinus: sinuses nontender Mouth: oropharynx normal and moist mucous membranes Teeth and gingiva: dentition normal Eyes General: appearance normal, both eyes and all related structures Pupils: PERRL Neck Neck: normal visual inspection and no lymphadenopathy Chest Chest: normal inspection of the chest Resp Effort & Inspection: normal respiratory effort Auscultation: clear to auscultation bilaterally, no rales, no rhonchi and no wheezes Cardio Rate: regular rate Rhythm: regular rhythm Heart Sounds: S1 normal, S2 normal and no murmurs Pulses: radial pulses present GI Inspection: normal to inspection Palpation: soft Skin General skin exam: no rashes or lesions noted Neuro General: patient alert, patient awake and patient oriented x3 Extrem General: no clubbing, cyanosis or edema Psych Mental Status: mental status grossly normal Affect: normal affect Attitude: cooperative Most Recent VS/Results Last Vital Signs Temp 36.5 C 05/31/21 09:30 Pulse 69 05/31/21 09:01 Resp 20 05/31/21 09:01 BP 106/77 05/31/21 09:01 Pulse Ox 95 05/31/21 09:01 Laboratory Results - last 24 hr 05/29/21 05/29/21 05/29/21 02:45 02:45 07:40 WBC RBC Hgb Hct MCV MCH MCHC RDW Plt Count MPV Immature Gran % Neutrophils % Lymphocytes % Monocytes % Eosinophils % Basophils % Nucleated RBC % Absolute Neutrophils Absolute Lymphocytes Absolute Monocytes Absolute Eosinophils Absolute Basophils Sodium Potassium Chloride Carbon Dioxide Anion Gap BUN Creatinine Estimated GFR/1.73 m2 Glucose Calcium Phosphorus Magnesium C-Reactive Protein Urine Color Urine Clarity Urine pH Ur Specific [place] Urine Protein Urine Ketones Urine Blood Urine Nitrite Urine Bilirubin Urine Urobilinogen Ur Leukocyte Esterase Urine RBC Urine WBC Ur Epithelial Cells Urine Crystals Urine Bacteria Urine Casts Urine Mucus Ur Culture Indicated? Urine Glucose CSF Cryptococcal Ag Ttr Not Applicable CSF Cryptococcus Ag Negative Stool Campylobacter PCR Negative Stool Salmonella PCR Negative Stool Shigella PCR Negative HSV Source Description Not Applicable HSV I DNA PCR Negative HSV II DNA PCR Negative Shiga Toxin (PCR) Negative 05/30/21 05/30/21 05/31/21 12:05 13:22 00:41 WBC RBC Hgb Hct MCV MCH MCHC RDW Plt Count MPV Immature Gran % Neutrophils % Lymphocytes % Monocytes % Eosinophils % Basophils % Nucleated RBC % Absolute Neutrophils Absolute Lymphocytes Absolute Monocytes Absolute Eosinophils Absolute Basophils Sodium 141 143 Potassium 3.6 3.4 L Chloride 108 H 111 H Carbon Dioxide 27.9 28.6 Anion Gap 5.1 3.4 BUN 2 L 3 L Creatinine 0.6 L 0.7 Estimated GFR/1.73 m2 >= 60.00 >= 60.00 Glucose 147 H 100 Calcium 7.8 L 7.7 L Phosphorus Magnesium C-Reactive Protein Urine Color Yellow Urine Clarity Clear Urine pH 6.0 Ur Specific [place] 1.025 Urine Protein Negative Urine Ketones Negative Urine Blood Moderate H Urine Nitrite Negative Urine Bilirubin Negative Urine Urobilinogen 0.2 Ur Leukocyte Esterase Negative Urine RBC >50 H Urine WBC 10-20 H Ur Epithelial Cells Negative Urine Crystals Negative Urine Bacteria Moderate Urine Casts Negative Urine Mucus Heavy Ur Culture Indicated? Yes Urine Glucose Negative CSF Cryptococcal Ag Ttr CSF Cryptococcus Ag Stool Campylobacter PCR Stool Salmonella PCR Stool Shigella PCR HSV Source Description HSV I DNA PCR HSV II DNA PCR Shiga Toxin (PCR) 05/31/21 05/31/21 06:23 06:23 WBC 10.76 D RBC 3.85 L Hgb 10.7 L D Hct 32.5 L MCV 84.4 D MCH 27.8 MCHC 32.9 RDW 15.6 H Plt Count 477 H MPV 11.2 H Immature Gran % 0.5 Neutrophils % 55.8 Lymphocytes % 31.3 Monocytes % 11.8 Eosinophils % 0.3 Basophils % 0.3 Nucleated RBC % 0 Absolute Neutrophils 6.00 Absolute Lymphocytes 3.37 Absolute Monocytes 1.27 H Absolute Eosinophils 0.03 Absolute Basophils 0.03 Sodium 144 Potassium 4.2 D Chloride 111 H Carbon Dioxide 26.7 Anion Gap 6.3 BUN 3 L Creatinine 0.6 L Estimated GFR/1.73 m2 >= 60.00 Glucose 201 H D Calcium 7.9 L Phosphorus 2.1 L Magnesium 1.6 L C-Reactive Protein 0.45 H Urine Color Urine Clarity Urine pH Ur Specific [place] Urine Protein Urine Ketones Urine Blood Urine Nitrite Urine Bilirubin Urine Urobilinogen Ur Leukocyte Esterase Urine RBC Urine WBC Ur Epithelial Cells Urine Crystals Urine Bacteria Urine Casts Urine Mucus Ur Culture Indicated? Urine Glucose CSF Cryptococcal Ag Ttr CSF Cryptococcus Ag Stool Campylobacter PCR Stool Salmonella PCR Stool Shigella PCR HSV Source Description HSV I DNA PCR HSV II DNA PCR Shiga Toxin (PCR) Review of Systems All systems reviewed & are unremarkable except as noted in HPI and below Time spent with patient Time spent in Critical Care: 35 Time spent in Critical care included: Coordination of care, Chart review, Documenting critically ill care, Time at immediate bedside and Discussing critically ill care with other medical staff
[2021-05-31 12:45] LABS: Anion Gap 2.7 mmol/L (3-11); BUN 4 mg/dL (7-18); CO2 29.3 mmol/L (21.0-32.0); CREATININE 0.7 mg/dL (0.70-1.30); Calcium 8.1 mg/dL (8.5-10.1); Chloride 110 mmol/L (98-107); Glucose 121 mg/dL (74-106); Potassium 4.1 mmol/L (3.5-5.1); Sodium 142 mmol/L (136-145)
[2021-05-31] MEDS: cefTRIAXone 2 GM/50 ML BAG IVPB (16:49)
[2021-06-01] MEDS: Heparin 5,000 UNITS/ML VIAL 5000 UNITS SC ×4 (01:49→23:17)
[2021-06-01] MEDS: Lactated Ringers 1,000 ML 100 ML IV (01:58)
[2021-06-01] MEDS: Normal Saline Flush 10 ML SYR IVP ×8 (01:58→23:09)
[2021-06-01] MEDS: HYDROmorphone 2 MG/ML VIAL IVP ×7 (02:09→23:08)
[2021-06-01 03:29] VITALS: BP 117/76; PULSE 75; RESP 16; TEMP 36.9; O2SAT 98
[2021-06-01 07:22] LABS: Absolute Basophil Count 0.03 10^3/uL (0.0-0.2); Absolute Lymphocyte Count 2.96 10^3/uL (1.2-3.4); Absolute Monocyte Count 1.25 10^3/uL (0.1-0.8); Basophils % 0.2; Eosinophils % 0.9; HCT 31.7 % (40.0-50.0); HGB 10.5 g/dL (13.5-17.5); Immature Grans % 0.7; Lymphocytes % 21.4; MCH 27.5 pg (27.0-33.0); MCHC 33.1 % (32.0-36.0); MPV 11.4 fL (8.0-11.0); Neutrophils % 67.8; Nucleated RBC 0 %; Platelet Count 505 10^3/uL (130-400); RBC 3.82 10^6/uL (4.36-5.78); RDW 15.8 % (11.8-14.1); RDW-SD 46.6 fL; WBC 13.85 10^3/uL (4.4-10.8)
[2021-06-01 07:30] LABS: Absolute Eosinophil Count 0.12 10^3/uL (0.0-0.7); Absolute Neutrophil Count 9.39 10^3/uL (1.2-6.7)
[2021-06-01 07:40] VITALS: BP 129/83; PULSE 77; RESP 16; TEMP 36.7; O2SAT 98
[2021-06-01 07:43] LABS: Anion Gap 4.7 mmol/L (3-11); BUN 3 mg/dL (7-18); CO2 31.3 mmol/L (21.0-32.0); CREATININE 0.6 mg/dL (0.70-1.30); Calcium 8.3 mg/dL (8.5-10.1); Chloride 103 mmol/L (98-107); Glucose 69 mg/dL (74-106); Magnesium 1.7 mg/dL (1.8-2.4); Sodium 139 mmol/L (136-145)
[2021-06-01] MEDS: Pantoprazole 40 MG VIAL IVP (09:16)
[2021-06-01] MEDS: Citalopram 20 MG TAB 60 MG PO (09:17)
[2021-06-01] MEDS: Ascorbic Acid 500 MG TAB PO (09:18)
[2021-06-01] MEDS: Potassium Chloride 20 MEQ TABCR 40 MEQ PO (09:18)
[2021-06-01] MEDS: MAGNESIUM SULFATE 2 GM/50 ML BAG IVPB (10:55)
[2021-06-01 11:45] VITALS: BP 135/81; PULSE 81; RESP 18; TEMP 37.2; O2SAT 97
[2021-06-01] MEDS: Potassium Chloride 20 MEQ TABCR PO ×2 (14:01→19:55)
--- NOTE | 2021-06-01 15:07 | W.SURGCON ---
Date of service: 06/01/21 Time of Service: 11:07 Assessment and Plan Assessment and plan (1) Gram-negative bacteremia: Status: Acute Assessment and plan: -Patient has a history of very difficult IV access, has had ports on both right and left chest and previous bacteremia. -Port site itself is not grossly infected, catheter likely seeded -He will need secure IV placement in order to proceed with removal of port so that he can continue to be treated for his bacteremia and receive IV medications -Type II NSTEMI, per cardiology treat supportively -Will plan for port removal tomorrow with the patient's consent, case discussed with anesthesia (2) History of pancreatic islet cell transplantation: Status: Chronic (3) Cystic fibrosis: Status: Chronic (4) Hypokalemia: Status: Acute (5) Hypomagnesemia: Status: Acute (6) Hypophosphatemia: Status: Acute (7) Hyperammonemia: Status: Acute (8) Gram negative sepsis: Status: Acute (9) Acidosis due to secondary diabetes: Status: Acute History of Present Illness Narrative: 55 year old male with extensive medical and surgical history who was transferred from [facility] with DKA and colitis, he was started on Zosyn prior to transfer. He has now also been found to be bacteremic with e. coli sensitive to Rocephin which he is currently on. Daily blood cultures have been positive since day of admission 05/28/2021. Patient has had a port also on the left side that was removed for bacteremia and replaced on the right side in December at [facility]. He states he does not want to return to [facility] because of bad blood and some kind of post procedure complication related to his port replacement. He is not able to further elaborate much on this issue. He was found to have a slightly elevated troponin and repeat transthoracic echocardiogram showed a slightly reduced EF (45%), global hypokinesis and a small to moderate pericardial effusion. He was seen by cardiology who recommended supportive treatment at this time and possible repeat stress test. Due to his persistent bacteremia I was asked to see the patient in consultation for removal. The patient tells me he has very difficult veins for IV placement and the one currently in place in his hand is quite painful when used. He understands the reason the port needs to be removed as it is likely seeded with the bacteria growing in his blood. A portion of the catheter will be sent for culture at the time of removal. Consults Consult date: 06/01/21 Requesting physician: Janell Martin Review of Systems Constitutional Constitutional: Reports as per HPI, Reports fatigue, Denies frequent falls, Reports lethargy, Reports poor appetite and Reports weakness Cardiovascular Cardiovascular: Denies chest pain, Denies syncope and Denies dyspnea Respiratory Respiratory: Denies cough and Denies dyspnea Gastrointestinal Gastrointestinal: Reports abdominal pain (chronic), Denies change in bowel habits, Reports nausea and Denies vomiting Musculoskeletal Musculoskeletal: Reports muscle weakness Integumentary/Breasts Skin/Breast: Denies lesions and Denies wounds Neurologic Neurologic: Denies syncope, Denies frequent falls and Reports weakness Endocrine Endocrine: Reports fatigue [facility] Medical History (Updated 06/01/21 @ 15:19 by Fidelia Warner DO) Anxiety Asthma Cardiomyopathy Depression DVT (deep venous thrombosis) GI bleed Pancreatitis Port-A-Cath in place Secondary diabetes mellitus insulin dependent (pt is s/p pancreatectomy). Surgical History H/O splenectomy History of cardiac catheterization History of cholecystectomy History of esophagogastroduodenoscopy (EGD) History of hernia repair Social History Smoking/Tobacco Use Status: Former Tobacco Use Quit Date: 08/24/09 Smoking risk assessment performed?: Yes Details: PT CAN NOT ANSWER QUESTIONS AT THIS TIME Exam Const General: cooperative, comfortable, no acute distress and ill appearing Chest Chest: normal inspection of the chest, no tenderness, No rash and other (port in place with access needle right chest, normal surrounding skin) Resp Effort & Inspection: normal respiratory effort, no audible wheezes and no respiratory distress GI Inspection: normal to inspection, non-distended and scar Palpation: soft and tender in the epigastrum and periumbilically Percussion: normal to percussion Skin General skin exam: no rashes or lesions noted Neuro General: patient alert, patient awake and patient oriented x3 Cranial Nerves: CN's II-XI intact bilaterally Results Last Vital Signs Temp 99.0 F 06/01/21 11:45 Pulse 81 06/01/21 11:45 Resp 18 06/01/21 11:45 BP 135/81 06/01/21 11:45 Pulse Ox 97 06/01/21 11:45 Labs Result diagrams: 06/01/21 06:15 06/01/21 06:15 Labs: Laboratory Results - last 24 hr 05/29/21 06/01/21 06/01/21 08:47 06:15 06:15 WBC 13.85 H RBC 3.82 L Hgb 10.5 L Hct 31.7 L MCV 83.0 MCH 27.5 MCHC 33.1 RDW 15.8 H Plt Count 505 H MPV 11.4 H Immature Gran % 0.7 Neutrophils % 67.8 Lymphocytes % 21.4 Monocytes % 9.0 Eosinophils % 0.9 Basophils % 0.2 Nucleated RBC % 0 Absolute Neutrophils 9.39 H Absolute Lymphocytes 2.96 Absolute Monocytes 1.25 H Absolute Eosinophils 0.12 Absolute Basophils 0.03 Sodium 139 Potassium 3.0 L D Chloride 103 Carbon Dioxide 31.3 Anion Gap 4.7 BUN 3 L Creatinine 0.6 L Estimated GFR/1.73 m2 >= 60.00 Glucose 69 L D Calcium 8.3 L Magnesium 1.7 L Urine Color Cancelled Urine Clarity Cancelled Urine pH Cancelled Ur Specific [place] Cancelled Urine Protein Cancelled Urine Ketones Cancelled Urine Blood Cancelled Urine Nitrite Cancelled Urine Bilirubin Cancelled Urine Urobilinogen Cancelled Ur Leukocyte Esterase Cancelled Urine Glucose Cancelled
[2021-06-01] MEDS: cefTRIAXone 2 GM/50 ML BAG IVPB (16:11)
--- NOTE | 2021-06-01 16:40 | PGE_ITS ---
Date of Service Date of service: 06/01/21 Time of Service: 16:40 Assessment and Plan Assessment and plan (1) Escherichia coli sepsis: Status: Acute Assessment and plan: Initial blood cultures positive for E. coli from 05/30 in 2/2 bottles. Sensitive to Rocephin which he is currently on 2 gm daily. Repeat blood cultures were obtained today. He will need 2 weeks of efffective p arenteral antibiotics from his first negative blood cultures. He will have his mediport removed tomorrow w cultures of the tip. (2) DKA (diabetic ketoacidosis): Status: Resolved Assessment and plan: resolved. now on basal bolus insulin. He is only on low dose (insulin sensitive) novolog along w/ Lantus. I will add CHO coverage and increase his sliding scale. His glucose has been running in the high 200's today. Qualifiers: Diabetes mellitus type: due to underlying condition Diabetes mellitus complication detail: without coma Qualified Code(s): E08.10 - Diabetes mellitus due to underlying condition with ketoacidosis without coma (3) Elevated troponin: Status: Acute Assessment and plan: suspected to be d/t demand ischemia from sepsis. LVEF 45%. Cardiology consulted and recommended follow up echo in 3 months once his infections are cleared up. If he continues to have a cardiomyopathy then perhaps a follow up stress MPI could be considered depending on his symptoms. (4) Toxic metabolic encephalopathy: Status: Acute Assessment and plan: Suspect that this is due to E coli sepsis. DKA should no longer be a factor. Doing much better. Consider lactulose vs rifaxamine when taking PO. Monitor mental status (5) Hyperammonemia: Status: Acute Assessment and plan: As above (6) Hypomagnesemia: Status: Acute Assessment and plan: Replete and recheck in am (7) Hypophosphatemia: Status: Acute Assessment and plan: Replete and recheck in am (8) History of pancreatic islet cell transplantation: Status: Chronic Assessment and plan: For chronic pancreatitis due to above. With secondary T1DM. He is not on immunosupressants. Patient refused creon today. 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 (10) Hypokalemia: Status: Resolved Assessment and plan: Recheck in am (11) Secondary diabetes mellitus: Status: Chronic Assessment and plan: Insulin dependent as s/p pancreatectomy, acts as T1DM. On basal bolus insulin. Can likely transfer out of the ICU this afternoon. (12) Cystic fibrosis: Status: Chronic Assessment and plan: Referral placed for [facility] center. (13) DVT prophylaxis: Status: Acute Assessment and plan: SC heparin (14) Discharge planning issues: Status: Acute Assessment and plan: Full code. Anticipate transfer out of ICU this afternoon. Discussed with Dr Alvarez Subjective Subjective Interval history since last seen: Dr. Warner saw him for surgery and is planning for his mediport removal tomorrow. Patient is scared to have this removed. I went over this w/ the patient and his and that I.D. has recommended removal of this d/t his recurrent gram negative bacteremia. He will need temporary CVP placement until his bactermia clears then he can have new mediport placed. Exam Narrative Exam Narrative: Tearful, frightened middle age white male who complains of pain all over. He reportedly has been to pain centers at [facility] as well as in [place] to no avail. Lungs: clear Heart: RRR w/out murmur or rub chest wall: mediport appears intact w/ out redness nor any induration Abdomen: soft and nondistended. He has surgical scars over his abdomen from prior pancreatectomy and Islet cell transplants Extremities: w/out edema or cyanosis nor any skin breakdown Objective Last Vital Signs Temp 37.2 C 06/01/21 11:45 Pulse 81 06/01/21 11:45 Resp 18 06/01/21 11:45 BP 135/81 06/01/21 11:45 Pulse Ox 97 06/01/21 11:45 Laboratory Results - last 24 hr 05/29/21 05/29/21 06/01/21 07:40 08:47 06:15 WBC RBC Hgb Hct MCV MCH MCHC RDW Plt Count MPV Immature Gran % Neutrophils % Lymphocytes % Monocytes % Eosinophils % Basophils % Nucleated RBC % Absolute Neutrophils Absolute Lymphocytes Absolute Monocytes Absolute Eosinophils Absolute Basophils Sodium 139 Potassium 3.0 L D Chloride 103 Carbon Dioxide 31.3 Anion Gap 4.7 BUN 3 L Creatinine 0.6 L Estimated GFR/1.73 m2 >= 60.00 Glucose 69 L D Calcium 8.3 L Magnesium 1.7 L Urine Color Cancelled Urine Clarity Cancelled Urine pH Cancelled Ur Specific [place] Cancelled Urine Protein Cancelled Urine Ketones Cancelled Urine Blood Cancelled Urine Nitrite Cancelled Urine Bilirubin Cancelled Urine Urobilinogen Cancelled Ur Leukocyte Esterase Cancelled Urine Glucose Cancelled Stool Collect Duration Random Stool Weight 3 Stool Percent Fat Not Applicable Stool Total Fats Not Applicable 06/01/21 06:15 WBC 13.85 H RBC 3.82 L Hgb 10.5 L Hct 31.7 L MCV 83.0 MCH 27.5 MCHC 33.1 RDW 15.8 H Plt Count 505 H MPV 11.4 H Immature Gran % 0.7 Neutrophils % 67.8 Lymphocytes % 21.4 Monocytes % 9.0 Eosinophils % 0.9 Basophils % 0.2 Nucleated RBC % 0 Absolute Neutrophils 9.39 H Absolute Lymphocytes 2.96 Absolute Monocytes 1.25 H Absolute Eosinophils 0.12 Absolute Basophils 0.03 Sodium Potassium Chloride Carbon Dioxide Anion Gap BUN Creatinine Estimated GFR/1.73 m2 Glucose Calcium Magnesium Urine Color Urine Clarity Urine pH Ur Specific [place] Urine Protein Urine Ketones Urine Blood Urine Nitrite Urine Bilirubin Urine Urobilinogen Ur Leukocyte Esterase Urine Glucose Stool Collect Duration Stool Weight Stool Percent Fat Stool Total Fats
[2021-06-01] MEDS: Insulin Aspart 300 UNITS/3 ML PEN SC ×2 (17:49→23:16)
[2021-06-01] MEDS: Magnesium Oxide 400 MG TAB PO (19:55)
[2021-06-01 20:20] VITALS: BP 135/89; PULSE 89; RESP 18; TEMP 36.9; O2SAT 97
[2021-06-02] VITALS (7 sets, daily range): BP systolic 121–144; BP diastolic 80–95; PULSE 77–90; RESP 14–18; TEMP 36.5–37.2; TEMPC 36.5; O2SAT 96–97; BMI 19.7
[2021-06-02] MEDS: HYDROmorphone 2 MG/ML VIAL IVP ×4 (02:26→12:29)
[2021-06-02] MEDS: Normal Saline Flush 10 ML SYR IVP ×4 (02:27→20:23)
[2021-06-02] MEDS: Insulin Aspart 300 UNITS/3 ML PEN SC ×5 (06:32→22:23)
[2021-06-02 07:14] LABS: Absolute Basophil Count 0.01 10^3/uL (0.0-0.2); Absolute Lymphocyte Count 2.38 10^3/uL (1.2-3.4); Basophils % 0.1; Eosinophils % 1.3; HCT 32.2 % (40.0-50.0); HGB 10.7 g/dL (13.5-17.5); Immature Grans % 0.7; Lymphocytes % 16.7; MCH 27.8 pg (27.0-33.0); MCHC 33.2 % (32.0-36.0); MCV 83.6 fL (80-95); MPV 10.9 fL (8.0-11.0); Monocytes % 11.7; Neutrophils % 69.5; Nucleated RBC 0 %; RBC 3.85 10^6/uL (4.36-5.78); RDW 16.3 % (11.8-14.1); RDW-SD 47.2 fL; WBC 14.23 10^3/uL (4.4-10.8)
[2021-06-02 07:18] LABS: Absolute Eosinophil Count 0.18 10^3/uL (0.0-0.7); Absolute Monocyte Count 1.66 10^3/uL (0.1-0.8); Absolute Neutrophil Count 9.89 10^3/uL (1.2-6.7)
[2021-06-02 07:34] LABS: Anion Gap 4.5 mmol/L (3-11); BUN 4 mg/dL (7-18); CO2 31.5 mmol/L (21.0-32.0); CREATININE 0.5 mg/dL (0.70-1.30); Calcium 8.5 mg/dL (8.5-10.1); Chloride 99 mmol/L (98-107); Glucose 177 mg/dL (74-106); Magnesium 1.9 mg/dL (1.8-2.4); Potassium 3.9 mmol/L (3.5-5.1); Sodium 135 mmol/L (136-145)
[2021-06-02 07:52] LABS: Diff Comment Agrees w/ Instrument; Platelet Count 541 10^3/uL (130-400)
[2021-06-02 07:53] LABS: Poikilocytes 1+
[2021-06-02] MEDS: Pantoprazole 40 MG VIAL IVP (09:25)
--- NOTE | 2021-06-02 09:29 | W.PM.PROGNOT ---
Date of Service Date of service: 06/02/21 Time of Service: 09:29 Assessment and Plan Assessment and plan (1) Escherichia coli sepsis: Status: Acute Assessment and plan: -Plan for infusaport removal today in the operatring room, tip will be sent for culture -After discussing all risks, benefits and alternatives informed consent was obtained for port removal -At least 48hr holiday with IV antibiotic treatment and negative blood cultures x48h prior to reimplantation if deemed necessary (2) Gram-negative bacteremia: Status: Acute (3) Abdominal pain: Status: Acute Assessment and plan: -Chronic, has been taking IV dilaudid here around the clock -Able to tolerate full diet despite pain Qualifiers: Abdominal location: upper abdomen, unspecified Qualified Code(s): R10.10 - Upper abdominal pain, unspecified Subjective Subjective Patient reports: still having pain and tolerating a regular diet; denies nausea and vomiting Exam Const General: cooperative, no acute distress and ill appearing Chest Chest: no tenderness and other (right sided infusaport with access needle in place) Resp Effort & Inspection: normal respiratory effort, no audible wheezes and no respiratory distress Cardio Rate: regular rate Rhythm: regular rhythm GI Inspection: non-distended and scar Palpation: soft and tender in the epigastrum and periumbilically Percussion: normal to percussion Skin General skin exam: no rashes or lesions noted Neuro General: patient alert, patient awake and patient oriented x3 Objective Last Vital Signs Temp 98.4 F 06/02/21 08:15 Pulse 90 06/02/21 08:15 Resp 16 06/02/21 08:15 BP 142/95 H 06/02/21 08:15 Pulse Ox 97 06/02/21 08:15 Laboratory Results - last 24 hr 05/29/21 06/02/21 06/02/21 07:40 06:20 06:20 WBC 14.23 H RBC 3.85 L Hgb 10.7 L Hct 32.2 L MCV 83.6 MCH 27.8 MCHC 33.2 RDW 16.3 H Plt Count 541 H MPV 10.9 Immature Gran % 0.7 Neutrophils % 69.5 Lymphocytes % 16.7 Monocytes % 11.7 Eosinophils % 1.3 Basophils % 0.1 Nucleated RBC % 0 Absolute Neutrophils 9.89 H Absolute Lymphocytes 2.38 Absolute Monocytes 1.66 H Absolute Eosinophils 0.18 Absolute Basophils 0.01 RBC Morphology See Below Poikilocytosis 1+ Sodium 135 L Potassium 3.9 D Chloride 99 Carbon Dioxide 31.5 Anion Gap 4.5 BUN 4 L Creatinine 0.5 L Estimated GFR/1.73 m2 >= 60.00 Glucose 177 H D Calcium 8.5 Magnesium 1.9 C-Reactive Protein 5.10 H Stool Collect Duration Random Stool Weight 3 Stool Percent Fat Not Applicable Stool Total Fats Not Applicable
--- NOTE | 2021-06-02 10:02 | ANES.PREOP_ITS ---
General Info Date of Service Date Performed: 06/02/21 Height: 5 ft 10 in Weight: 62.3 kg Body Mass Index (BMI): 19.7 Surgical Procedure: Operation Date: 06/02/21 10:15 Proposed Procedures Side Surgeon p Port-A-Cath Removal Fidelia Warner, Meds Allergies and Home Medications Allergies Allergy/AdvReac Type Severity Reaction Status Date / Time cyclobenzaprine AdvReac Mild EPIGASTRIC Unverified 05/29/21 05:02 PAIN clonidine AdvReac MUSCLE Unverified 05/29/21 05:02 CRAMPS ibuprofen AdvReac SEVERE Unverified 05/29/21 05:02 STOMACH PAIN lorazepam AdvReac NAUSEA AND Unverified 05/29/21 05:02 VOMITING methotrexate AdvReac CAUSED Unverified 05/29/21 05:02 PANCREATITIS NSAIDS (Non-Steroidal AdvReac UNKNOWN Unverified 05/29/21 05:02 Anti-Inflamma ondansetron [From Zofran] AdvReac EPIGASTRIC Unverified 05/29/21 05:02 PAIN pregabalin AdvReac DIZZINESS Unverified 05/29/21 05:02 DRY MOUTH BLURRY VISION tizanidine AdvReac EPIGASTRIC Unverified 05/29/21 05:02 PAIN CONSTIPATION AND DIZZINESS vancomycin AdvReac RED MAN Unverified 05/29/21 05:02 SYNDROME Home Medication Medication Instructions Recorded acetaminophen 500 - 1,000 mg PO Q8H PRN 05/31/21 albuterol sulfate [Ventolin HFA] 2 puff INHALATION Q4H PRN 05/31/21 ascorbic acid (vitamin C) 500 mg PO DAILY 05/31/21 blood sugar diagnostic [FreeStyle 05/31/21 Lite Strips] citalopram 60 mg PO DAILY 05/31/21 clonazepam 1 - 2 mg PO TID PRN MDD 5 MG 05/31/21 ergocalciferol (vitamin D2) 1,250 mcg PO .TWICE WEEKLY 05/31/21 flunisolide 2 spray INTRANASAL BID 05/31/21 hydromorphone 4 - 8 mg PO .Q3-4H PRN MDD 10 TABS 05/31/21 PER DAY insulin lispro [Humalog U-100 0 - 10 unit SUBCUT AC 05/31/21 Insulin] lancets [FreeStyle Lancets] 05/31/21 aljfwk-yuhljoct-thjesvz [Creon] 1 - 2 cap PO .WITH SNACKS PRN 05/31/21 oaxulx-hxlivska-ekhvkyl [Creon] 3 cap PO QMEALS 05/31/21 magnesium hydroxide 5 ml PO DAILY PRN 05/31/21 methocarbamol 1,500 mg PO TID PRN 05/31/21 metoclopramide HCl 10 mg PO Q6H PRN 05/31/21 nitroglycerin 0.4 mg SUBLINGUAL Q5M PRN 05/31/21 omeprazole 20 mg PO BID 05/31/21 pen needle, diabetic [BD 05/31/21 Ultra-Fine Short Pen Needle] polyethylene glycol 3350 [Miralax] 17 g PO DAILY PRN 05/31/21 sennosides-docusate sodium [Senna 1 tab-cap PO BID PRN 05/31/21 Plus] Current Visit Medications: Current Medications Generic Name Dose Route Start Last Admin Trade Name Freq PRN Reason Stop Dose Admin Acetaminophen 1,000 mg 06/02/21 07:30 Acetaminophen 500 Mg Tab PO Q8H PRN PRN Pain or Fever Albuterol Sulfate 2 puff 06/01/21 07:30 Albuterol Hfa 6.7 Gm 200 Puff Inh IH Q4H PRN PRN Shortness of Breath Lipase/Protease/Amylase 8 cap 05/29/21 17:00 06/01/21 16:11 Creon, Lipase 12,000 Capcr PO 8 cap QMEALS MICHAEL Administration Lipase/Protease/Amylase 1 cap 05/29/21 12:55 05/31/21 15:11 Creon, Lipase 12,000 Capcr PO 1 cap PRN PRN Administration Ascorbic Acid 500 mg 06/01/21 08:30 06/01/21 09:18 Ascorbic Acid 500 Mg Tab PO 500 mg DAILY MICHAEL Administration Citalopram Hydrobromide 60 mg 06/01/21 08:30 06/01/21 09:17 Citalopram 20 Mg Tab PO 60 mg DAILY MICHAEL Administration Clonazepam 1 - 2 mg 05/31/21 18:43 Clonazepam 1 Mg Tab PO TID PRN Dextrose 0 gm 05/29/21 07:55 Glucose 40% Oral Solution 15 Gm/37.5 Gm Tube PO DIRECTED PRN Dextrose/Water 0 gm 05/29/21 07:55 05/30/21 18:40 Dextrose 50%-Water 25 Gm/50 Ml Syr IVP 25 gm DIRECTED PRN Administration Dimethicone/Zinc Oxide 0 gm 05/28/21 15:01 Cecily Protect Cream 142 Gm Tube TP PRN PRN Heparin Sodium (Porcine) 5,000 units 05/28/21 16:00 06/01/21 23:17 Heparin 5,000 Units/Ml Vial SC 5,000 units Q8H MICHAEL Administration Hydromorphone HCl 2 - 4 mg 05/31/21 12:14 06/02/21 09:24 Hydromorphone 2 Mg/Ml Vial IVP 4 mg Q3H PRN PRN Administration Sodium Chloride 500 mls @ 0 mls/hr 05/28/21 15:01 Saline 500ml Bag IV PRN PRN As Directed Ceftriaxone Sodium/Dextrose 2 gm in 50 mls @ 100 mls/hr 05/31/21 16:00 06/01/21 16:11 Rocephin IVPB 100 mls/hr Q24H MICHAEL Administration IV Miscellaneous Supplies 1 each 05/28/21 15:15 Iv Access IV DIRECTED [facility] Insulin Aspart 0 units 06/02/21 08:00 Insulin Aspart 300 Units/3 Ml Pen SC 0800,1200,1700 [facility] Insulin Aspart 0 units 06/02/21 06:00 06/02/21 06:32 Insulin Aspart 300 Units/3 Ml Pen SC 3 units Q6H [facility] Administration Protocol Insulin Glargine 26 units 06/02/21 08:30 Insulin Glargine 300 Units/3 Ml Pen SC QAM [facility] Magnesium Oxide 400 mg 06/01/21 20:00 06/01/21 19:55 Magnesium Oxide 400 Mg Tab PO 400 mg BID MICHAEL Administration Methocarbamol 1,500 mg 06/02/21 07:30 Methocarbamol 750 Mg Tab PO TID PRN PRN Pain Metoclopramide HCl 10 mg 05/29/21 08:19 05/31/21 16:52 Metoclopramide 10 Mg/2 Ml Vial IVP 10 mg Q6H PRN PRN Administration Pantoprazole Sodium 40 mg 05/29/21 08:30 06/02/21 09:25 Pantoprazole 40 Mg Vial IVP 40 mg Q24H MICHAEL Administration Prochlorperazine Edisylate 10 mg 10/08/21 15:02 Prochlorperazine 10 Mg/2 Ml Vial IVP Q4H PRN PRN Senna/Docusate Sodium 1 tab 05/31/21 18:56 Sennosides/Docusate Sodium Tab PO BID PRN Constipation Sodium Chloride 0 ml 05/28/21 15:01 06/02/21 05:23 Normal Saline Flush 10 Ml Syr IVP 10 ml PRN PRN Administration Sodium Chloride 0 ml 06/01/21 20:00 06/02/21 09:25 Normal Saline Flush 10 Ml Syr IVP 30 ml BID MICHAEL Administration PFSH Active Problems Active Problems: Problem Status Onset Code Escherichia coli sepsis A41.51 Gram-negative bacteremia R78.81 Secondary diabetes mellitus E13.9 Toxic metabolic encephalopathy G92.8 Hypokalemia E87.6 Discharge planning issues Z02.9 DVT prophylaxis Z29.9 Gram negative sepsis A41.50 Pancreatic insufficiency due to cystic fibrosis E84.8, K86.89 Nausea R11.0 Leukocytosis D72.829 Hyperammonemia E72.20 Hypophosphatemia E83.39 Hypomagnesemia E83.42 Hypokalemia E87.6 Cystic fibrosis E84.9 History of pancreatic islet cell transplantation Z94.89 Chronic inflammation of pancreas K86.1 Sepsis A41.9 Elevated troponin R77.8 Acidosis due to secondary diabetes E13.10 Abdominal pain R10.9 DKA (diabetic ketoacidosis) E11.10 Lethargy R53.83 Medical History Medical History (Updated 06/02/21 @ 09:32 by Fidelia Warner DO) Anxiety Asthma Cardiomyopathy Depression DVT (deep venous thrombosis) GI bleed Pancreatitis Port-A-Cath in place Secondary diabetes mellitus insulin dependent (pt is s/p pancreatectomy). Surgical History Surgical History H/O splenectomy History of cardiac catheterization History of cholecystectomy History of esophagogastroduodenoscopy (EGD) History of hernia repair Tobacco Smoking/Tobacco Use Status: Former Tobacco Use Substance Use Details: PT CAN NOT ANSWER QUESTIONS AT THIS TIME Vital Signs and Lab Results Vital Signs Most Recent Vital Signs in EMR: Most Recent Vital Signs Temp Pulse Resp BP Pulse Ox 36.9 C 90 16 142/95 H 97 06/02/21 08:15 06/02/21 08:15 06/02/21 08:15 06/02/21 08:15 06/02/21 08:15 Point of Care Results Point of Care Results: Finger Stick Blood Glucose 162 06/02/21 08:03 Lab Results Result Diagrams: 06/02/21 06:20 06/02/21 06:20 Blood Type / Crossmatch: No Data to Display Complete Blood Count: White Blood Count 14.23 10^3/uL (4.4-10.8) H 06/02/21 06:20 06/02/21 Red Blood Count 3.85 10^6/uL (4.36-5.78) L 06/02/21 06:20 06/02/21 Hemoglobin 10.7 g/dL (13.5-17.5) L 06/02/21 06:20 06/02/21 Hematocrit 32.2 % (40.0-50.0) L 06/02/21 06:20 06/02/21 Platelet Count 541 10^3/uL (130-400) H 06/02/21 06:20 06/02/21 Venous Blood Lactate 1.0 mmol/L (0.6-1.4) 05/28/21 22:18 05/28/21 Complete Metabolic Panel: Sodium Level 135 mmol/L (136-145) L 06/02/21 06:20 06/02/21 Potassium Level 3.9 mmol/L (3.5-5.1) 06/02/21 06:20 06/02/21 Chloride Level 99 mmol/L (98-107) 06/02/21 06:20 06/02/21 Carbon Dioxide Level 31.5 mmol/L (21.0-32.0) 06/02/21 06:20 06/02/21 Blood Urea Nitrogen 4 mg/dL (7-18) L 06/02/21 06:20 06/02/21 Creatinine 0.5 mg/dL (0.70-1.30) L 06/02/21 06:20 06/02/21 Estimated GFR/1.73 m2 >= 60.00 (mL/min/1.73m2) 06/02/21 06:20 06/02/21 Magnesium Level 1.9 mg/dL (1.8-2.4) 06/02/21 06:20 06/02/21 Calcium Level 8.5 mg/dL (8.5-10.1) 06/02/21 06:20 06/02/21 Albumin 2.8 g/dL (3.4-5.0) L 05/30/21 06:29 05/30/21 Glucose Level 177 mg/dL (74-106) H 06/02/21 06:20 06/02/21 Hemoglobin A1c 12.2 % (<5.7) H 05/28/21 22:18 05/28/21 C-Reactive Protein 5.10 mg/dL (0.0-0.3) H 06/02/21 06:20 06/02/21 Liver Function Panel: Alanine Aminotransferase (ALT/SGPT) 19 U/L (16-63) 05/30/21 06:29 Aspartate Amino Transf (AST/SGOT) 17 U/L (15-37) 05/30/21 06:29 05/30/21 Coagulation Panel: INR International Normalized Ratio 1.1 (0.9-1.1) 05/28/21 22:18 05/28/21 Prothrombin Time 10.6 sec (9.3-11.0) 05/28/21 22:18 05/28/21 Cardiac Panel: Troponin I 0.68 ng/mL (<0.06) H* 05/29/21 07:28 05/29/21 Arterial Blood Gas: No Data to Display Venous Blood Gas: Venous Blood pH 7.41 (7.31-7.41) 05/29/21 07:28 05/29/21 Venous Blood Partial Pressure O2 39 mmHg 05/29/21 07:28 05/29/21 Venous Blood Partial Pressure CO2 30 mmHg (41-51) L 05/29/21 07:28 05/29/21 Venous Blood Oxygen Saturation 82 % 05/29/21 07:28 05/29/21 Venous Blood HCO3 19 mmol/L (23-28) L 05/29/21 07:28 05/29/21 Venous Blood Base Excess -6 mmol/L (-2-3) L 05/29/21 07:28 05/29/21 Venous Blood Total Carbon Dioxide 17 mmol/L (24-29) L 05/29/21 07:28 05/29/21 Pancreas Panel: Lipase 20 U/L (73-393) 05/29/21 07:28 05/29/21 Thyroid Panel: Thyroid Stimulating Hormone (TSH) 0.33 uIU/mL (0.36-3.74) L 05/28/21 22:18 05/28/21 Infectious Disease: Coronavirus (COVID-19)(PCR) Negative (Negative) 05/28/21 22:18 05/28/21 Coronavirus 2019 Source Nasal/Nares 05/28/21 22:18 05/28/21 Blood Cultures: No Data to Display Toxicology Panel: No Data to Display Imaging and Studies Imaging and Studies EKG Summary: Conclusion Sinus rhythm...normal P axis, V-rate 60- 99 Normal Electrocardiogram Echocardiogram Summary: Reviewed in record Anesthesia Assessment and Plan Anesthesia History Personal History: No History of Anesthesia Complications Family History: No Family History of Anesthesia Complications Exercise Tolerance Exercise Tolerance: Metabolic Equivalents>4 Pertinent Negatives Pertinent Negatives: No Symptoms of GERD, No Major Cardiovascular Symptoms or Complaints, No Major Pulmonary Symptoms or Complaints and No History of CVA/TIA Cardiac & Pulmonary Exam Cardiac Exam: Normal S1/S2 Heart Sounds Pulmonary Exam: Clear Bilateral Breath Sounds Airway Exam Known Difficult Airway: No Mallampati Class: 2 Mouth Opening: Normal (> 3cm) Thyromental Distance: Greater than 3 cm Neck Range of Motion: Full ROM Neck Circumference: Normal Teeth Condition: Removable Dentures/Plates Upper and Removable Dentures/Plates Lower ASA Classification ASA Score: ASA 4 Emergency Case?: Yes NPO Status NPO Status: NPO Clears >2 hours, Solids >8 hours Anesthesia Plan Resuscitation Status: Full Code Anesthesia Technique: MAC Anesthesia Airway Planned: Natural Airway Monitors Used: Standard Monitors
[2021-06-02] MEDS: Lactated Ringers 1,000 ML 30 ML IV (10:24)
--- NOTE | 2021-06-02 11:43 | W.PM.OP ---
Date of service: 06/02/21 Time of Service: 11:44 Operative Note Operative Note DATE OF PROCEDURE: 06/02/21 PRE-OP DIAGNOSIS: E. coli Bacteremia POST-OP DIAGNOSIS: same PROCEDURE: Removal of right chest Mediport SURGEON: Fidelia Warner ANESTHESIA TYPE: Local By Surgeon and MAC Refer to Anesthesia Record ESTIMATED BLOOD LOSS: 5 PATHOLOGY: other (tip for culture, catheter and port for gross) COMPLICATIONS: None Patient was transported to: floor Patient's condition: stable Findings: Mediport catheter was removed in its entirety and passed off the field. The tip was sent for culture and the rest of the catheter and Mediport was sent for gross identification. Procedure Description: Patient was correctly identified and taken to the operating room and placed on the operating table in supine position. After adequate induction of MAC anesthesia the patient was then prepped and draped in the usual sterile fashion. Prior to prepping and draping the patient's Mediport was de-accessed without difficulty. A timeout procedure was performed confirming the correct patient and procedure. Patient is already on IV Rocephin for treatment of his E. coli bacteremia and therefore further antibiotics were not given at the time of the procedure. Local anesthesia was infiltrated into the subcutaneous tissues surrounding the port site. Next, a small 1.5 cm incision was created over the area of the port. Dissection was carried down sharply and the capsule surrounding the port was entered. Electrocautery was used to achieve hemostasis. The capsule was broken up bluntly with a hemostat until it was entirely free from its surroundings. Next, using an Allis clamp the catheter was clamped and easily removed from the pocket. Next, a hemostat was placed on the catheter in order to secure it for removal and ensure it was removed in its entirety. Patient was placed in Trendelenburg position and the catheter was entirely removed. Gentle pressure was held on the site and hemostasis was confirmed. The tip of the catheter was subsequently removed and sent for culture and the remaining part of the catheter and port were sent for gross identification. The capsule was then closed with 3-0 Vicryl in an interrupted fashion and the skin was closed using 4-0 Monocryl in a running subcuticular fashion. Skin affix was placed over the site. All needle sponge and instrument counts were correct x2 at the end of the procedure. Patient tolerated the procedure well without any complications.
--- NOTE | 2021-06-02 11:51 | W.ANESPOSTOP ---
Postoperative Evaluation Date, Time and Location Date Performed: 06/02/21 Time Performed: 11:53 Patient Location: Med/Surg (229) Vital Signs Most Recent Imported Vital Signs: Most Recent Vital Signs Temp Pulse Resp BP Pulse Ox 36.9 C 90 16 142/95 H 97 06/02/21 08:15 06/02/21 08:15 06/02/21 08:15 06/02/21 08:15 06/02/21 08:15 Most Recent Manually Entered Vital Signs: Adult Blood Pressure: 121/82 Heart Rate: 80 Respirations: 14 Oxygen Saturation (%): 97 Temperature (C): 36.5 C Pain Score (0-10 Scale): 9 Pain Score Most Recent Pain Score: Most Recent Pain Score Pain Level [Abdomen] 5 05/31/21 19:25 Pain Level 8 06/02/21 09:24 Assessment Mental Status: Awake (Alert & Oriented to Patient Baseline) Airway and Respiratory Function: Patent airway with normal (patient baseline) respiratory exam Cardiovascular Function: Hemodynamically Stable Hydration Status: Adequately Hydrated Nausea & Vomiting: No Nausea or Vomiting Pain: Pain is Moderate or Severe Postoperative Pain Management: Ongoing pain, patient will be managed as an inpatient Peripheral Nerve Block: Patient did not receive a nerve block
[2021-06-02] MEDS: Magnesium Oxide 400 MG TAB PO ×2 (12:28→20:23)
[2021-06-02] MEDS: Citalopram 20 MG TAB 60 MG PO (12:28)
[2021-06-02] MEDS: Ascorbic Acid 500 MG TAB PO (12:29)
[2021-06-02] MEDS: Insulin Glargine 300 UNITS/3 ML PEN 26 UNITS SC (12:31)
[2021-06-02] MEDS: Heparin 5,000 UNITS/ML VIAL 5000 UNITS SC (15:49)
[2021-06-02] MEDS: cefTRIAXone 2 GM/50 ML BAG IVPB (15:49)
--- NOTE | 2021-06-02 16:52 | W.PM.PROGNOT ---
Date of Service Date of service: 06/02/21 Time of Service: 16:52 Assessment and Plan Assessment and plan (1) Escherichia coli sepsis: Status: Acute Assessment and plan: Initial blood cultures positive for E. coli from 05/30 in 2/2 bottles. Sensitive to Rocephin which he is currently on 2 gm daily. Repeat blood cultures were obtained yesterday and are negative. He will need 2 weeks of efffective parenteral antibiotics from his first negative blood cultures. Mediport was removed today with culture of the tip obtained and pending. Plan will be for placement of PICC line tomorrow and possible discharge tomorrow afternoon for continued parenteral Rocephin 2 g IV daily for total of 14 days including the days that he was here in the hospital. (2) Secondary diabetes mellitus: Status: Chronic Assessment and plan: Insulin dependent as s/p pancreatectomy, acts as T1DM. Patient was transferred out of the ICU 2 days ago after being treated for DKA. Blood sugars have been running high today Between 179 this morning to 312 this afternoon. Patient is receiving both carbohydrate coverage at a ratio of 1:10 as well as 26 units of Lantus every morning. His corrective scale is insulin resistant scale. Because of his rising blood sugars on Thursday given dose of NPH this evening and increase his daily dose of Lantus as well as adjust his carbohydrate coverage ratio of insulin to carbohydrate at a 1:5 ratio. 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 With secondary T1DM. He is not on immunosupressants. Patient refused creon today. 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 (5) Cystic fibrosis: Status: Chronic Assessment and plan: Referral placed for [facility] CF center. (6) DVT prophylaxis: Status: Acute Assessment and plan: SC heparin (7) Discharge planning issues: Status: Acute Assessment and plan: Full code. Anticipate discharge tomorrow afternoon after placement of his PICC line. He will need a 14-day course of ceftriaxone 2 g daily. Tomorrow will be day number 4 out of 14. Remaining 10 days can be accomplished through his local hospital at [facility] in [facility] Subjective Subjective Interval history since last seen: Patient had surgery this morning to remove his Mediport. Repeat blood cultures From June 01, 2021 have shown no growth after 24 hours. His initial cultures grew out E. coli from May 30, 2021 which was sensitive to ceftriaxone at less than or equal to 1. It was resistant to ampicillin and ampicillin with sulbactam as well as ciprofloxacin and Levaquin. Patient remains on high-dose ceftriaxone 2 g IV daily. Peripheral line was placed in his right forearm. I have asked the nurse mechanical engineering manager to place a PICC line for tomorrow morning so that we can try to obtain outpatient parenteral treatment. Patient should receive 14 days of Rocephin 2 g daily. After which she can be reevaluated for placement of a new Mediport. Patient desires to receive his outpatient antibiotic treatment through [facility]. Patient was not happy with my selection of pain control. I was trying to transition him to a Duragesic patch however he reportedly is allergic to Duragesic patches. He prefers higher doses the IV hydromorphone. I declined to give him any further IV hydromorphone but rather he should go back on the oral hydromorphone he was on at home. I did a online search of the [place] prescription monitoring program to assess his use of narcotic analgesics. It appears that he gets his hydromorphone 4 mg tablets prescribed by his PCP which is ALCIRA Gonzalez in [facility]. He apparently is prescribed hydromorphone 4 mg 1 to 2 tablets every 4 hours as needed for pain with a limit of 10 tablets/day. His last prescription was filled May 02, 2021. I have adjusted his oral hydromorphone dose to reflect his home dose. Exam Narrative Exam Narrative: Middle-aged white male sitting up in bed talking with his . Chest wall reveals a closed wound of the right anterior chest where his Mediport had been. There is no purulent drainage and no erythema. This wound is right over a tattoo on his right side of his upper chest. His lungs are clear to auscultation his heart regular rate and rhythm his abdomen is soft nontender nondistended normal bowel sounds Objective Last Vital Signs Temp 36.6 C 06/02/21 14:49 Pulse 85 06/02/21 14:49 Resp 16 06/02/21 14:49 BP 124/80 06/02/21 14:49 Pulse Ox 97 06/02/21 14:49 Laboratory Results - last 24 hr 05/29/21 06/02/21 06/02/21 07:40 06:20 06:20 WBC 14.23 H RBC 3.85 L Hgb 10.7 L Hct 32.2 L MCV 83.6 MCH 27.8 MCHC 33.2 RDW 16.3 H Plt Count 541 H MPV 10.9 Immature Gran % 0.7 Neutrophils % 69.5 Lymphocytes % 16.7 Monocytes % 11.7 Eosinophils % 1.3 Basophils % 0.1 Nucleated RBC % 0 Absolute Neutrophils 9.89 H Absolute Lymphocytes 2.38 Absolute Monocytes 1.66 H Absolute Eosinophils 0.18 Absolute Basophils 0.01 RBC Morphology See Below Poikilocytosis 1+ Sodium 135 L Potassium 3.9 D Chloride 99 Carbon Dioxide 31.5 Anion Gap 4.5 BUN 4 L Creatinine 0.5 L Estimated GFR/1.73 m2 >= 60.00 Glucose 177 H D Calcium 8.5 Magnesium 1.9 C-Reactive Protein 5.10 H Stool Percent Fat 23 H
[2021-06-02] MEDS: HYDROmorphone 4 MG TAB PO ×2 (17:04→20:53)
[2021-06-02] MEDS: Insulin NPH-Human 300 UNITS/3 ML PEN 10 UNIT SC (20:23)
[2021-06-03] MEDS: Heparin 5,000 UNITS/ML VIAL 5000 UNITS SC ×3 (00:58→16:10)
[2021-06-03] MEDS: HYDROmorphone 4 MG TAB PO ×3 (00:58→09:56)
[2021-06-03 07:43] VITALS: BP 155/103; PULSE 88; RESP 17; TEMP 36.3; O2SAT 97
[2021-06-03] MEDS: Citalopram 20 MG TAB 60 MG PO (09:32)
[2021-06-03] MEDS: Magnesium Oxide 400 MG TAB PO (09:33)
[2021-06-03] MEDS: Insulin Glargine 300 UNITS/3 ML PEN 32 UNITS SC (09:33)
[2021-06-03] MEDS: Ascorbic Acid 500 MG TAB PO (09:33)
[2021-06-03] MEDS: Insulin Aspart 300 UNITS/3 ML PEN SC ×4 (09:35→12:07)
[2021-06-03] MEDS: Normal Saline Flush 10 ML SYR IVP ×3 (09:37→16:11)
--- NOTE | 2021-06-03 11:27 | DIABASSESS_ITS ---
Date of service: 06/03/21 Time of Service: 11:27 Diabetes Note NOTE: Provided diabetes education to Sae and Windy. Sae knowledgeable about how to take insulin, how to correct elevated blood sugars with sliding scale. Reports losing over 50 lbs in last couple of years due to stomach pain (without adjustment in insulin levels). Reports frequent hyperglycemia and poor glycemic control as evidenced by A1C >12% at admission with DKA. PMH: Type 2 NSTEMI, CF, h/o of failed pancreatic islet cell transplantation, h/o pancrectomy/splenectomy with recent CT findings indicating thickening of transvere colon. Hx of frequent stomach aches, reoccurent pancreatitis, chronic opiate use, RA. Tolerating regular diet at this time, refusing creon capsules at meals. Educated on benefits of creon tablets for digestion. Not connected with CF clinic at [facility], referral placed. Needs additional education on how CF affects multiple organs including intestine/pancrease. Placed and educated Sae/ on benefits of contiuous glucose monitor Dexcom G6. Provided educational material. Encouraged Sae to follow up with endocrinology after discharge and consider linking Dexcom 6 with omnipod insulin pump. Provided number to [facility] provider to provide dexcom G6 sensors (3 per month). Provided my contact information for follow as needed. Time Spent in Nutritional Counseling and Treatment: 30
[2021-06-03 12:19] VITALS: BP 147/105; PULSE 108; RESP 16; TEMP 36.7; O2SAT 96
--- NOTE | 2021-06-03 12:40 | CMDISCH_ITS ---
- If Service Date Differs Date of service: 06/03/21 Time of Service: 12:41 LACE Index Scoring Tool - Questions: Length of Stay (in days): 4 - 6 Acuity (Admit via E.D.?): No Comorbidities: Diabetes w/o Complication E.D. Visits: 1 - Answers: Total Score: 6 Risk of Readmission: Low Risk Care Management Discharge Reason for Hospitalization: Lethargy, DKA, Abdominal Pain, Acidosis, Elevated Troponin, Sepsis Discharge Plan: Discharge home via private vehicle with . Outpatient ABX IV therapy to take place daily X 10 days at [facility] in [facility]. DONAL faxed orders and discharge summary to [facility] and spoke with Quiana from their infusion room ([phone]). They will call patient to schedule his infusions. Anderson will also follow up with his community providers and discharge plan of care as prescribed. Patient/Family Education Needs: Review discharge instructions, limitations and plan to follow up with discharge plan of care as prescribed. ask me three. Services Needed at Discharge: Infusion Therapy (Order faxed to [facility] Infusion ( , Ph. [phone]))
[2021-06-03] MEDS: clonazePAM 1 MG TAB PO ×2 (12:55→15:44)
--- NOTE | 2021-06-03 14:07 | W.PM.PROGNOT ---
Documented by User: ALCIRA Randle 06/03/21 14:10 Date of Service Date of service: 06/03/21 Time of Service: 14:07 Assessment and Plan Assessment and plan (1) Escherichia coli sepsis: Status: Acute Assessment and plan: POD #1 s/p infusaport removal Port tip was sent for culture Incision site is well approximated. No erythema, swelling or induration. At this time, the surgical service will sign off. (2) Gram-negative bacteremia: Status: Acute (3) Abdominal pain: Status: Chronic Assessment and plan: -Chronic, has been taking IV dilaudid here around the clock -Able to tolerate full diet despite pain Qualifiers: Abdominal location: upper abdomen, unspecified Qualified Code(s): R10.10 - Upper abdominal pain, unspecified Subjective Subjective Interval history since last seen: Patient denies any pain or swelling around his port site. He expressed that his only discomfort at this time, is located in his abdomen. Exam Const General: cooperative, healthy appearing and comfortable Orientation: alert and oriented x3 Resp Effort & Inspection: normal respiratory effort, no audible wheezes and no cough Skin Other: Right upper chest- Incision from mediport removal is well approximated. Skin glue in place. No erythema, swelling or induration noted on exam. Objective Last Vital Signs Temp 36.7 C 06/03/21 12:19 Pulse 108 H 06/03/21 12:19 Resp 16 06/03/21 12:19 BP 147/105 H 06/03/21 12:19 Pulse Ox 96 06/03/21 12:19 Laboratory Results - last 24 hr 05/29/21 07:40 Stool Percent Fat 23 H Documented by User: Elda Natarajan DO 06/06/21 16:36
--- NOTE | 2021-06-03 14:25 | W.PM.DS.N ---
Date of service: 06/03/21 Time of Service: 14:25 DS: Diagnosis Discharge Diagnosis (1) DKA (diabetic ketoacidosis): Status: Resolved Asessment and Plan: Patient was transferred from [facility] in [facility] w/ symptos of abdominal pain, nausea, vomiting, confusion, and signs of DKA including elevated anion gap, acidosis (pH 7.1), leukocytosis (25,000 w/ left shift), hyperglycemia. CT of abdomen and pelvis performed prior to transfer suggested colitis of the transverse colon. Patient was initially treated w/ Zosyn, antiemetic, iv fluids and begun on insulin drip but d/t lack of ICU capacity at [facility]. he was transferred to [facility] intensive care unit. Due to the mental status change and uncertain source of infection an lumbar puncture was performed by the admitting hospitalist and this showed no evidence for SITE SAFETY MANAGER infection (low WBC, normal protein and negative gram stain which culture came back negative). Patient was continued on insulin drip, iv fluids and kept on Zosyn and the next day Flagyl was added. Blood cultures, SITE SAFETY MANAGER culture, stool cultures (including C .diff) and urine cultures were obtained. His SITE SAFETY MANAGER, stool and urine cultures all came back no growth. C. diff study was negative. His blood cultures from admission on 05/28 grew 1/2 bottles for E. coli and reeat blood cultures on 05/30 grew 2/2 bottles for E. coli. This was sensitive to Ceftriaxone but resistant to ampicillin/sulbactan and to quinolones (both Cipro and Levaquin). Antibiotics were changed to Ceftriaxone and flagyl was discontinued. He was put on Ceftriaxone on 05/31. His DKA resolved by 05/29 but d/t poor po intake he was kept on isotonic solution w/ D5 and low rate of insulin drip and his Lantus was resumed. On 05/31 he came off the insulin drip and was taking po and put back on basal/bolus insulin. His hypokalemia, hypomagnesemia and hypophosphatemia were treated w/ parenteral and eventually oral supplementation. He was put back on his pancreatic enzymes supplements. He was seen in consultation by pulmonary/CCM, Dr. Alvarez on 05/29 and 10/8; see her notes for recommendations. She reviewed his records from [facility] GI service and there has been documentation that the patient has cystic fibrosis however, he has not followed up in the CF clinic. She reviewed his CT abdomen and pelvis from [facility] and indicated she saw no bronchiectasis in the lower cuts of the lungs from the CT suggesting no lung involvement from CF. She recommended follow up in the CF clinic and w/ endocrine at [facility]. (2) Escherichia coli sepsis: Status: Acute Asessment and Plan: As listed above, multiple cultures were obtained. Initial blood cultures was + on 05/28 in 1/2 bottles, repeat on 05/30 was + in 2/2 bottles but repeat blood cultures on 06/01 were no growth x 2 bottles. He was initially treated w/ Zosyn and flagyl was added until his stool C diff came back negative. I.D. at [facility] was consulted per telephone and they recommended removal of his mediport. Dr. Warner, surgeon, was consulted on 06/01 and his mediport was removed on 06/02 and the catheter tip was cultured and came back no growth. Patient's Zosyn was changed to Ceftriaxone 2 gm daily on 05/31. A PICC line was placed in his left brachial vein on 06/03 w/ the depth of the vein at 1.5 cm and the length of the catheter at 53 cm. The tip is in the SVC. The catheter is a single lumen 18 gauge power PICC line. The patient should have continued Rocephin 2 gm daily for another 10 days. Afterwards the PICC line can be removed and a new Mediport can be places as long as he shows no signs of continued infection. The source of his infection is suspected to be from colitis. His stool cultures were all negative for Salmonella, Shigella and Campylobacter as well as C. diff. He should be referred to GI at [facility] for his colitis as well as for his cystic fibrosiss. (3) Toxic metabolic encephalopathy: Status: Acute Asessment and Plan: secondary to sepsis, symptoms cleared up once his infection and DKA were treated. CSF fluid was negative for infection. He had hyperammonemia on admission w/ a level of 42 and repeat level of 32. The clinical signifiance is unknown but this may be a chronic condition related to his CF. It was not treated w/ any lactulose or rifaximin in light of his colitis. (4) Cardiomyopathy: Status: Inactive Asessment and Plan: An echocardiogram was performed due to elevated troponin levels and demonstrated the following: Global LV hypokinesis w/ LVEF of 45% w/ no regional wall motion abnormalities. RV size and wall thickness and systolic function were normal. No hemodynamically significant valvular abnormalities were seen. A small to moderate sized pericardial effusion was seen w/ evidence of increased pericardial pressure w/ RA and RV diastolic collapse. However IVC was not plethoric and there was no significant Doppler variation across the mitral valve and the LVOT. Compared to his prior echo from 01/18/21 his trivial pericardial effusion is now larger and his LV function has worsened. Cardiology consultation was obtained w/ Dr. Caryl Pink; see her note for details. She indicated that she believed his elevated troponin I levels (peak of 1.03) was secondary to demand ischemia and did not represent an infarct. She recommended that his echocardiogram be repeated in 3 months to assess for resolution as she believed that his cardiomyopathy was secondary to sepsis. She did indicate that stress MPI should be considered if his echo does not improve or he has symptoms of angina. (5) Elevated troponin: Status: Acute Asessment and Plan: elevated troponin I w/peak of 1.03 on 05/28 and repeat level of 0.68 on 05/29. No further levels were checked. EKG from 05/28 and 05/29 were read as normal. Echocardiogram demonstrated moderate cardiomyopathy, see details above. (6) Abdominal pain: Status: Chronic Asessment and Plan: improved w/ treatment of his infection; however, the patient has chronic pain and is opioid dependent. His pain was initially controlled w/ parenteral narcotic analgesics while he was NPO but then he was converted to his home dose, which I confirmed by checking w/ the [place] Prescription Monitorinig Program. (7) Hypokalemia: Status: Resolved Asessment and Plan: resolved w/ iv and oral replacement (8) Hypomagnesemia: Status: Resolved Asessment and Plan: resolved w/ iv and oral replacement (9) Hypophosphatemia: Status: Resolved Asessment and Plan: resolved w/ iv and oral replacement (10) Hyperammonemia: Status: Acute (11) Pancreatic insufficiency due to cystic fibrosis: Status: Chronic Asessment and Plan: patient was placed back on his pancreatic enzyme supplements and he was tolerating an oral diet at the time of discharge (12) Secondary diabetes mellitus: Status: Chronic Asessment and Plan: patient was place back on basal/bolus insulin. Of note his glycohemoglobin A1c is elevated at 12 %, it is recommended that he follow up w/ endocrinology services for improved control of his DM (13) Cystic fibrosis: Status: Chronic Asessment and Plan: It is recommended that he be followed in the CF clinic at [facility] (14) History of pancreatic islet cell transplantation: Status: Chronic Discharge Plan Disposition Patient Disposition: HOME Condition: Improving Discharge Details Reason For Visit: Metabolic Acidosis, suspect DKA, Type 2 NSTEMI Admit Date/Time: 05/28/21 15:03 Admit Provider: Janell Martin Attending Provider: Janell Martin Primary Care Provider: Unknown,Unknown Home Meds and New Rx's Prescriptions: New potassium chloride 20 mEq tablet extended release 20 meq PO DAILY Qty: 30 RF: 0 Continued citalopram 40 mg Tablet 60 mg PO DAILY RF: 0 (DME) FreeStyle Lite Strips Strip MISCELLANEOUS RF: 0 acetaminophen 500 mg Tablet 500 - 1,000 mg PO Q8H PRNRF: 0 ascorbic acid (vitamin C) 500 mg Tablet 500 mg PO DAILY RF: 0 albuterol sulfate [Ventolin HFA] 90 mcg/actuation Hfa Aerosol Inhaler 2 puff INHALATION Q4H PRNRF: 0 clonazepam 1 mg Tablet 1 - 2 mg PO TID MDD 5 MG PRNRF: 0 metoclopramide HCl 5 mg/5 mL Solution 10 mg PO Q6H PRN (Reason: Nausea And Vomiting) RF: 0 methocarbamol 750 mg Tablet 1,500 mg PO TID PRN (Reason: Pain) RF: 0 magnesium hydroxide 400 mg/5 mL Suspension 5 ml PO DAILY PRN (Reason: Constipation) RF: 0 flunisolide 25 mcg (0.025 %) Rice,Non-Aerosol 2 spray INTRANASAL BID RF: 0 nitroglycerin 0.4 mg Tablet, Sublingual 0.4 mg SUBLINGUAL Q5M PRNRF: 0 ergocalciferol (vitamin D2) 1,250 mcg (50,000 unit) Capsule 1,250 mcg PO .TWICE WEEKLY RF: 0 insulin lispro [Humalog U-100 Insulin] 100 unit/mL Solution 0 - 10 unit SUBCUT AC RF: 0 hydromorphone 4 mg Tablet 4 - 8 mg PO .Q3-4H MDD 10 TABS PER DAY PRN (Reason: Pain) RF: 0 Creon 12,000-38,000 -60,000 unit Capsule,Delayed Release(Dr/Ec) 1 - 2 cap PO .WITH SNACKS PRNRF: 0 (DME) lancets [FreeStyle Lancets] 28 gauge Misc MISCELLANEOUS RF: 0 Creon 36,000-114,000- 180,000 unit Capsule,Delayed Release(Dr/Ec) 3 cap PO QMEALS RF: 0 polyethylene glycol 3350 [Miralax] 17 gram Powder In Packet 17 g PO DAILY PRNRF: 0 omeprazole 20 mg Capsule,Delayed Release(Dr/Ec) 20 mg PO BID RF: 0 (DME) pen needle, diabetic [BD Ultra-Fine Short Pen Needle] 31 gauge x 5/16 Needle MISCELLANEOUS RF: 0 Senna Plus 8.6-50 mg Capsule 1 tab-cap PO BID PRNRF: 0 Discharge Instructions Instructions: Metabolic Acidosis (GEN) Stand Alone Forms: Nursing Discharge Form Referrals: [facility] [Outside] (Cystic fibrosis Center referral. Office will call you with appointment) Jennie Varela [PHYSICIANS MAKEUP ARTIST] - 06/12/21 9:45 am Activity:: Activity as Tolerated Equipment/Supplies:: No Equipment Needed Diet:: Normal Diet Discharge Orders Discharge Orders: Discharge Order (Routine); Ordered 06/03/21 Ordered By: Wallace Garcia Other Ambulatory Orders: Basic Metabolic Panel (Routine) Timeframe: 1 Week Location: None Selected Ordered By: Wallace Garcia Complete Blood Count w/Diff (Routine) Timeframe: 2 Weeks Location: None Selected Ordered By: Wallace Garcia C-Reactive Protein (Routine) Timeframe: 2 Weeks Location: None Selected Ordered By: Wallace Garcia Discharge Data Discharge Date/Time-TO BE ENTERED AT DEPARTURE: 06/03/21 16:48 DS: Summary Time Spent with Patient providing and/or coordinating discharge services: Greater than 30 minutes Status at Discharge Functional status at discharge: independent ambulation Overall status at discharge: patient is progressing back to baseline Mental Status: mental status grossly normal Speech and Movement: speech and movement normal Mood: congruent mood Affect: normal affect Exam Narrative Exam Narrative: Middle-aged white male sitting up in bed talking with his . Chest wall reveals a closed wound of the right anterior chest where his Mediport had been. There is no purulent drainage and no erythema. This wound is right over a tattoo on his right side of his upper chest. His lungs are clear to auscultation his heart regular rate and rhythm his abdomen is soft nontender nondistended normal bowel sounds Psych Mental Status: mental status grossly normal Speech and Movement: speech and movement normal Mood: congruent mood Affect: normal affect DS: Data Vitals/I&O Vitals and I&O: Vital Signs Temperature 36.7 C 06/03/21 12:19 Temperature Source Temporal Artery Scan 06/03/21 12:19 Pulse 108 H 06/03/21 12:19 Pulse Rhythm Regular 06/03/21 10:52 Pulse 86 05/31/21 19:02 Respiratory Rate 16 06/03/21 12:19 Respiratory Effort 06/03/21 10:52 Respiratory Depth Normal 06/03/21 10:52 Respiratory Pattern Normal 06/03/21 10:52 Blood Pressure 147/105 H 06/03/21 12:19 Blood Pressure Mean 92 05/31/21 19:02 Blood Pressure Position Supine 05/31/21 15:30 Pulse Oximetry 96 06/03/21 12:19 Oxygen Delivery Method Room Air 06/03/21 12:19 Oxygen Flow Rate 0 06/03/21 12:19 Pain Level 8 06/03/21 12:19 Comment 06/03/21 12:19 Intake & Output 06/02/21 06/03/21 06/03/21 23:59 11:59 23:59 Intake Total 50 / 350 360 / 360 Output Total 1250 / 2900 2550 / 2550 Balance -1200 / -2550 -2190 / -2190 Weight 63.1 kg Intake: IV 50 / 350 Oral 360 / 360 Output: Urine 1250 / 2900 2550 / 2550 Other: Urine Color Yellow Yellow Urine Appearance Clear Clear Urine Odor None None Voiding Methods Urinal Urinal Data Completed and Pending Labs on day of discharge: Labs from last 24 hours 05/29/21 07:40 Stool Percent Fat 23 H 06/02/21 11:27 Chest - Right Upper Anaerobic Culture - Pending Preliminary micro results at discharge 06/02/21 11:27 Catheter Tip Culture - Preliminary Chest - Right Upper 06/01/21 06:15 Blood Culture - Preliminary Blood NO GROWTH 48 HOURS 06/01/21 06:30 Blood Culture - Preliminary Blood NO GROWTH 48 HOURS 06/02/21 11:27 Anaerobic Culture - Pending Chest - Right Upper 05/30/21 07:19 Blood Culture - Preliminary Blood Escherichia coli 05/30/21 06:29 Blood Culture - Preliminary Blood Escherichia coli [facility] Medical History (Updated 06/04/21 @ 12:10 by Wallace Garcia) Anxiety Asthma Cardiomyopathy Depression DVT (deep venous thrombosis) GI bleed Pancreatitis Port-A-Cath in place Secondary diabetes mellitus insulin dependent (pt is s/p pancreatectomy). Surgical History H/O splenectomy History of cardiac catheterization History of cholecystectomy History of esophagogastroduodenoscopy (EGD) History of hernia repair Social History Smoking/Tobacco Use Status: Former Tobacco Use Quit Date: 08/24/09 Smoking risk assessment performed?: Yes Details: PT CAN NOT ANSWER QUESTIONS AT THIS TIME
[2021-06-03] MEDS: cefTRIAXone 2 GM/50 ML BAG IVPB (16:05)
== END 2021-06-03 16:48 | disposition home or self-care (01) | DRG 853 ==
LOC: ICU 05-31 19:05 → MS 05-31 21:08
PROVIDERS: Family Medicine; Internal Medicine; Surgery; Admitting Provider Internal Medicine; Visit Provider Internal Medicine
PROC: 02PY03Z Removal of Infusion Device from Great Vessel, Open Approach (ICD-10-PCS; CPT 36590; principal; 2021-06-02 10:15)
DX: A41.51 Sepsis due to Escherichia coli [E. coli] (principal); E08.10 Diabetes mellitus due to underlying condition with ketoacidosis without coma; G92.8 Other toxic encephalopathy; Z94.83 Pancreas transplant status; E84.8 Cystic fibrosis with other manifestations; E72.20 Disorder of urea cycle metabolism, unspecified; K86.1 Other chronic pancreatitis; I24.8 Other forms of acute ischemic heart disease; A04.4 Other intestinal Escherichia coli infections; I42.9 Cardiomyopathy, unspecified; F11.20 Opioid dependence, uncomplicated; G89.29 Other chronic pain; R10.9 Unspecified abdominal pain; F41.9 Anxiety disorder, unspecified; J45.909 Unspecified asthma, uncomplicated; F32.A Depression, unspecified; Z90.81 Acquired absence of spleen; Z20.822 Contact with and (suspected) exposure to COVID-19; Z86.718 Personal history of other venous thrombosis and embolism; E03.9 Hypothyroidism, unspecified; K86.81 Exocrine pancreatic insufficiency; E83.42 Hypomagnesemia; E83.39 Other disorders of phosphorus metabolism; E87.6 Hypokalemia; D72.829 Elevated white blood cell count, unspecified; Z79.4 Long term (current) use of insulin
CPT/HCPCS: 62270; 36590; 36569; 36415; 36430; 36591; 80048; 80076; 82805; 82945; 83690; 84145; 87040; 87077; 87116; 87206; 87493; 87505; 87529; 87635; 88300; 89050; 89051; 90686; 99222; 99232; 71045; 81003; 81015; 82140; 82710; 83036; 83605; 83735; 84100; 84155; 84157; 84439; 84443; 84484; 85025; 85610; 86140; 86403; 87070; 87075; 87086; 87186; 87205; 93005; 93010; 93306; 99233; 99291; 99292; J0131; J1644; J2250; J2270; J2543; J2704; J2765; J3010; J3480

== ENCOUNTER → 2021-05-31 07:36 | Outpatient (BNVA) | payer MEDICARE, SELFPAY | PROVIDERS: Visit Provider Internal Medicine Cardiovascular Disease | DX: R69 Illness, unspecified (principal) ==